=== PATIENT | female | born 1940 | race Hispanic/Latino ===

== ENCOUNTER 2020-05-30 10:24 | Inpatient (IN) | payer OTHER ==
--- NOTE | 2020-05-30 10:55 | RAD REPORT ---
EXAM DESCRIPTION: CT - Ct Stroke Brain Wo Cont - 05/30/2020 10:47 am CLINICAL HISTORY: Confusion/alteration of awareness COMPARISON: none TECHNIQUE: Computed axial tomography of the head was obtained. All CT scans are performed using dose optimization technique as appropriate and may include automated exposure control or mA/KV adjustment according to patient size. FINDINGS: An intracranial bleed is not seen . The ventricles are normal in caliber. No extra-axial fluid collection is noted. Mild to moderate low-density within periventricular, deep and subcortical white matter likely ischemi c changes secondary to small vessel disease. Additional small low-density areas bilaterally may indic ate small old infarction. Atherosclerotic disease Fluid within the sinuses/ mastoids is not seen. Mild chronic sinusitis present IMPRESSION: No acute intracranial abnormality is seen. If patient's symptoms persist MRI of the bra in would be recommended. Dr Lacy of the emergency room was notified at 10:48 a.m. May 30, 2020
--- NOTE | 2020-05-30 11:01 | RAD REPORT ---
EXAM DESCRIPTION: Darryl Single View05/30/2020 10:57 am CLINICAL HISTORY: Chest pain COMPARISON: none FINDINGS: The lungs appear clear of acute infiltrate. The heart is normal size IMPRESSION: No acute abnormalities displayed
[2020-05-30 11:19] LABS: Absolute Lymphocytes (CBC) 1.8 K/uL (0.7-4.9); Basophils % 0.7 % (0-1.3); Hematocrit 33.3 % (36.0-45.0); Lymphocytes % 21.2 % (15.3-44.8); MPV 10.4 fL (7.6-11.3); RBC Red Blood Cell Count 3.65 M/uL (3.86-4.86)
[2020-05-30 11:20] LABS: Protime INR 1.02
[2020-05-30 11:29] LABS: BUN Blood Urea Nitrogen 20 mg/dL (7-18); Bicarbonate 22 mmol/L (21-32); Glucose Level 122 mg/dL (74-106); Potassium 3.6 mmol/L (3.5-5.1); Sodium Level 143 mmol/L (136-145); Troponin (Emerg Dept Use Only) < 0.02 ng/mL (0.0-0.045)
[2020-05-30 11:49] LABS: Urine Blood TRACE (NEG); Urine Glucose NEGATIVE (NEG); Urine Protein TRACE (NEG)
[2020-05-30 11:59] LABS: Urine Bacteria <20 /HPF (<20); Urine Culture Reflex Order NOT NEEDED; Urine RBC <5 /HPF (NONE SEEN); Urine Yeast MANY (NONE SEEN)
[2020-05-30] MEDS ORDERED: NA CHLORIDE 0.9% 500 ML ONE (12:15)
--- NOTE | 2020-05-30 12:34 | EDPHYS ---
Physician Documentation [facility] Name: Marielle Rouse Age: 79 yrs Sex: Female : 1940 Arrival Date: 05/30/2020 Time: 10:36 Bed 8 Private MD: ED Physician Uche Lacy HPI: 05/30 11:18 This 79 yrs old Female presents to ER via EMS with complaints of Altered rn Mental Status. 11:18 The patient presents with confusion. Onset: The symptoms/episode began/occurred at an rn unknown time. Possible causes: unknown. Current symptoms: In the emergency department the patient's symptoms are unchanged from the initial presentation. The patient has experienced a previous episode. Family reports last known normal last night, went to check on patient this AM and was staring at ceiling. They noticed right facial droop that was seen with previous stroke, but they state it had resolved and looks like happening again. No recent illness. Another son verified that she is speaking differently and not acting like herself. EMS reports able to walk down steps on her own, get into stretcher on her own, and follows some commands but not others. . Historical: - Allergies: 10:39 No Known Allergies; hb - Immunization history:: Adult Immunizations up to date. - Social history:: Smoking status: unknown. - Family history:: not pertinent. - Hospitalizations: : No recent hospitalization is reported. ROS: 11:18 Unable to obtain ROS due to altered mental status. rn Exam: 11:18 Constitutional: This is a well developed, well nourished patient who is awake, alert, rn no acute distress Head/Face: Normocephalic, atraumatic. Eyes: Pupils equal round and reactive to light, extra-ocular motions intact. Lids and lashes normal. Conjunctiva and sclera are non-icteric and not injected. Cornea within normal limits. Periorbital areas with no swelling, redness, or edema. ENT: dry MM Cardiovascular: Regular rate and rhythm. No pulse deficits. Respiratory: No increased work of breathing, no retractions or nasal flaring. Abdomen/GI: soft, non-tender MS/ Extremity: Pulses equal, no cyanosis. Neurovascular intact. Full, normal range of motion. Equal circumference. Neuro: Awake and alert, when asked name and place/date she responds with "hi". Strength 5/5 no drift, no tremor. Withdraws from pain. Gaze intact. + mild right upper and lower facial weakness. + mild slurred speech. Vital Signs: 10:36 BP 144 / 71; Pulse 80; Resp 16; Temp 97.7(TE); Pulse Ox 99% on R/A; Pain 0/10; hb 11:30 BP 122 / 66; Pulse 97; Resp 16; Pulse Ox 99% on R/A; hb 13:00 BP 116 / 78; Pulse 87; Pulse Ox 100% on R/A; hb 14:30 BP 125 / 68; Pulse 78; Resp 16; Pulse Ox 99% on R/A; hb 10:36 Ortiz-Villatoro (FACES) hb NIH Stroke Scale Scores: 10:50 NIHSS Score: 5 rn MDM: 10:36 Patient medically screened. rn 10:46 ED course: Last known normal last night per family, one of their siblings checked don rn her this morning, was altered and staring blankly at ceiling. Had long discussion with family about if this is a stroke, cannot give TPA due to timing.. 10:50 ED course: No acute findings on CT head per Dr. Hines.. rn 11:18 Differential Diagnosis: CVA, electrolyte abnormality, intracranial bleed, UTI, volume rn depletion. 11:45 Data reviewed: vital signs, nurses notes, lab test result(s), EKG, radiologic studies, rn and as a result, I will admit patient. Counseling: I had a detailed discussion with the patient and/or guardian regarding: the historical points, exam findings, and any diagnostic results supporting the discharge/admit diagnosis, lab results, radiology results, the need for further work-up and treatment in the hospital. Response to treatment: the patient's symptoms have mildly improved after treatment, and as a result, I will admit patient. ED course: Pt with no acute findings on ct head. UA without obvious UTI. Elevated creatinine but first visit here, family thinks may have been told has kidney problems. . 12:32 ED course: Admitted to Dr. Espana for AMS w/u. Checked with MRI, machine is up and rn running, have neuro personnel specialist. Will admit for further w/u of possible CVA that is outside window given last known normal last night, and w/u for AMS.. 05/30 10:37 Order name: Troponin (emerg Dept Use Only) rn 05/30 10:37 Order name: Basic Metabolic Panel rn 05/30 10:37 Order name: CBC with Diff; Complete Time: 11:41 rn 05/30 10:37 Order name: Protime (+inr); Complete Time: 11:41 rn 05/30 10:37 Order name: Ptt, Activated; Complete Time: 11:41 rn 05/30 10:37 Order name: Urine Culture rn 05/30 10:37 Order name: Urine Microscopic Only; Complete Time: 12:25 rn 05/30 10:38 Order name: Troponin (Emerg Dept Use Only); Complete Time: 11:41 EDMS 05/30 10:38 Order name: Basic Metabolic Panel; Complete Time: 11:41 EDMS 05/30 11:47 Order name: Urine Dipstick--Ancillary (enter results); Complete Time: 12:25 bd 05/30 13:55 Order name: Comprehensive Metabolic Panel EDMS 05/30 13:55 Order name: Comprehensive Metabolic Panel EDMS 05/30 13:57 Order name: Urine Drug Screen EDMS 05/30 13:57 Order name: CBC with Automated Diff EDMS 05/30 13:57 Order name: CBC with Automated Diff EDMS 05/30 13:57 Order name: Lipid Profile EDMS 05/30 13:57 Order name: Lipid Profile EDMS 05/30 13:57 Order name: Magnesium EDMS 05/30 13:57 Order name: Magnesium EDMS 05/30 13:57 Order name: Phosphorus EDMS 05/30 13:57 Order name: Phosphorus EDMS 05/30 13:57 Order name: Protime (+INR) EDMS 05/30 13:57 Order name: Protime (+INR) EDMS 05/30 13:57 Order name: Protime (+INR) EDMS 05/30 13:57 Order name: Protime (+INR) EDMS 05/30 13:57 Order name: Protime (+INR) EDMS 05/30 13:57 Order name: Protime (+INR) EDMS 05/30 13:57 Order name: PTT, Activated Partial Thromb EDMS 05/30 13:57 Order name: PTT, Activated Partial Thromb EDMS 05/30 13:57 Order name: PTT, Activated Partial Thromb EDMS 05/30 10:37 Order name: CT Stroke Brain w/o Contrast; Complete Time: 11:03 rn 05/30 10:37 Order name: Stroke CXR 1 View; Complete Time: 11:03 rn 05/30 10:37 Order name: EKG; Complete Time: 10:38 rn 05/30 10:37 Order name: Accucheck; Complete Time: 10:49 rn 05/30 10:37 Order name: Cardiac monitoring; Complete Time: 10:49 rn 05/30 10:37 Order name: EKG - Nurse/Tech; Complete Time: 11:59 rn 05/30 10:37 Order name: IV Saline Lock; Complete Time: 10:49 rn 05/30 10:37 Order name: Labs collected and sent; Complete Time: 11:58 rn 05/30 10:37 Order name: NPO; Complete Time: 10:49 rn 05/30 10:37 Order name: O2 Per Protocol; Complete Time: 10:49 rn 05/30 10:37 Order name: O2 Sat Monitoring; Complete Time: 10:49 rn 05/30 10:37 Order name: Stroke Swallow Screen; Complete Time: 11:58 rn 05/30 10:37 Order name: Urine Dipstick-Ancillary (obtain specimen); Complete Time: 11:58 rn 05/30 13:57 Order name: Physical Therapy Consult EDMI 05/30 13:57 Order name: Speech Therapy Consult EDMI 05/30 13:57 Order name: NPO EDMS 05/30 13:57 Order name: Echo with Doppler EDMS 05/30 13:57 Order name: EKG Electrocardiogram EDMS 05/30 13:57 Order name: PTT, Activated Partial Thromb EDMS 05/30 13:57 Order name: PTT, Activated Partial Thromb EDMS 05/30 13:57 Order name: PTT, Activated Partial Thromb EDMS 05/30 13:57 Order name: Sedimentation Rate, Westergren EDMS 05/30 13:57 Order name: Sedimentation Rate, [place]gren EDMS 05/30 13:57 Order name: Stroke Protocol EDMI Administered Medications: 12:11 Drug: NS 0.9% 500 ml Route: IV; Rate: bolus; Site: left antecubital; hb Disposition: 05/30/20 12:33 Hospitalization ordered by Elroy Espana for Inpatient Admission. Preliminary diagnosis is Altered mental status, unspecified. - Bed requested for Telemetry/MedSurg (Inpatient). - Status is Inpatient Admission. hb - Condition is Stable. - Problem is new. - Symptoms have improved. NIH Stroke Scale - NIH Stroke Score Date: 05/30/2020 Time: 10:50 Total Score = 5 1a. Level of Consciousness (LOC) - 0(Alert) 1b. Level of Consciousness (LOC) (Year \\T\\ Age) - 2(Neither) 1c. LOC Commands (Open \\T\\ Closes Eyes/Center Customer Service Associate) - 1(One) 2. Best Gaze (Lateral Gaze Paresis) - 0(Normal) 3. Visual Field Loss - 0(No visual loss) 4. Facial Palsy - 1(Minor Paralysis) 5a. Left Arm: Motor (10-second hold) - 0(No drift) 5b. Right Arm: Motor (10-second hold) - 0(No drift) 6a. Left Leg: Motor (5-second hold - always test supine) - 0(No drift) 6b. Right Leg: Motor (5-second hold - always test supine) - 0(No drift) 7. Limb Ataxia (finger/nose \\T\\ heel/lazo - test with eyes open) - 0(Absent) 8. Sensory Loss (pinprick arms/legs/face) - 0(Normal) 9. Best Language: Aphasia (description/naming/reading) - 0(No aphasia) 10. Dysarthria (speech clarity - read or repeat words) - 1(Mild to Moderate) 11. Extinction and Inattention (visual/tactile/auditory/spatial/personal) - 0(No abnormality) Initials: rn Signatures: Dispatcher [employer] EDSavana Gannon Roman, MD MD rn Baxter, Heather, RN RN Corrections: (The following items were deleted from the chart) 11:30 11:18 Constitutional: This is a well developed, well nourished patient who is rn awake, alert, no acute distress Head/Face: Normocephalic, atraumatic. Eyes: Pupils equal round and reactive to light, extra-ocular motions intact. Lids and lashes normal. Conjunctiva and sclera are non-icteric and not injected. Cornea within normal limits. Periorbital areas with no swelling, redness, or edema. ENT: dry MM Cardiovascular: Regular rate and rhythm. No pulse deficits. Respiratory: No increased work of breathing, no retractions or nasal flaring. Abdomen/GI: soft, non-tender MS/ Extremity: Pulses equal, no cyanosis. Neurovascular intact. Full, normal range of motion. Equal circumference. Neuro: Awake and alert, when asked name and place/date she responds with "hi". Strength 5/5 no drift, no tremor. Withdraws from pain. Gaze intact. + mild right upper and lower facial weakness. rn 14:01 13:57 Chest Pa And Lat (2 Views) ordered. EDMS EDMS 14:04 12:33 Hospitalization Ordered by Elroy Espana MD for Inpatient Admission. bd Preliminary diagnosis is Altered mental status, unspecified. Bed requested for Telemetry/MedSurg (Inpatient). Status is Inpatient Admission. Condition is Stable. Problem is new. Symptoms have improved. rn 15:10 14:04 05/30/2020 12:33 Hospitalization Ordered by Elroy Espana MD for hb Inpatient Admission. Preliminary diagnosis is Altered mental status, unspecified. Bed requested for Telemetry/MedSurg (Inpatient). Status is Inpatient Admission. Condition is Stable. Problem is new. Symptoms have improved. bd
--- NOTE | 2020-05-30 12:34 | ER ---
Nurse's Notes [facility] Name: Marielle Rouse Age: 79 yrs Sex: Female : 1940 Arrival Date: 05/30/2020 Time: 10:36 Bed 8 Private MD: Diagnosis: Altered mental status, unspecified Presentation: 05/30 10:36 Chief complaint: EMS states: Son called for possible stroke, pt lives alone and sounded hb confused on phone, upon arrival he noticed left facial droop. History of previous CVA w/left sided weakness. On scene pt oriented to name only, following some simple commands, was able to walk and get on stretcher with minimal assistance. Last known normal unknown. BGL 109. 20g LAC. Coronavirus screen: At this time, the client does not indicate any symptoms associated with coronavirus-19. Ebola Screen: No symptoms or risks identified at this time. Initial Sepsis Screen: Does the patient meet any 2 criteria? Altered Mental Status. No. Patient's initial sepsis screen is negative. Does the patient have a suspected source of infection? No. Patient's initial sepsis screen is negative. Risk Assessment: Do you want to hurt yourself or someone else? Patient reports no desire to harm self or others. Onset of symptoms was May 30, 2020. 10:36 Method Of Arrival: EMS: [facility] hb 10:36 Acuity: DERRICK 2 hb Historical: - Allergies: 10:39 No Known Allergies; hb - Immunization history:: Adult Immunizations up to date. - Social history:: Smoking status: unknown. - Family history:: not pertinent. - Hospitalizations: : No recent hospitalization is reported. Screenin:40 Abuse screen: unable to obtain. Nutritional screening: No deficits noted. Tuberculosis hb screening: unable to obtain. Fall Risk Total Chavez Fall Scale indicates Low Risk Score (25-44 pts). Fall prevention measures have been instituted. Side Rails Up X 2 Frequent Obs/Assesments occuring Family Present and informed to notify staff if they need to leave bedside As available Patient and Family Educated on Fall Prevention Program and strategies. Assessment: 10:40 General: Appears in no apparent distress. Behavior is calm, cooperative. Pain: Unable hb to use pain scale. FLACC scale score is 0 out of 10. Neuro: Level of Consciousness is awake, alert, Oriented to person. Cardiovascular: Capillary refill < 3 seconds Patient's skin is warm and dry. Respiratory: Respiratory effort is even, unlabored, Respiratory pattern is regular, symmetrical. GI: No signs and/or symptoms were reported involving the gastrointestinal system. : No signs and/or symptoms were reported regarding the genitourinary system. EENT: No signs and/or symptoms were reported regarding the EENT system. Derm: Skin is pink, warm \T\ dry. Musculoskeletal: No signs and/or symptoms reported regarding the musculoskeletal system. 11:34 Reassessment: Patient appears in no apparent distress at this time. No changes from hb previously documented assessment. Patient and/or family updated on plan of care and expected duration. Pain level reassessed. Daughter remains at bedside. 12:30 Reassessment: Patient appears in no apparent distress at this time. No changes from hb previously documented assessment. Patient and/or family updated on plan of care and expected duration. Pain level reassessed. 13:30 Reassessment: Patient appears in no apparent distress at this time. No changes from hb previously documented assessment. Patient and/or family updated on plan of care and expected duration. Pain level reassessed. 14:30 Reassessment: Patient appears in no apparent distress at this time. No changes from hb previously documented assessment. Patient and/or family updated on plan of care and expected duration. Pain level reassessed. Vital Signs: 10:36 BP 144 / 71; Pulse 80; Resp 16; Temp 97.7(TE); Pulse Ox 99% on R/A; Pain 0/10; hb 11:30 BP 122 / 66; Pulse 97; Resp 16; Pulse Ox 99% on R/A; hb 13:00 BP 116 / 78; Pulse 87; Pulse Ox 100% on R/A; hb 14:30 BP 125 / 68; Pulse 78; Resp 16; Pulse Ox 99% on R/A; hb 10:36 Ortiz-Villatoro (FACES) hb NIH Stroke Scale Scores: 10:50 NIHSS Score: 5 journal box inspector Course: 10:36 Patient arrived in ED. hb 10:36 Uche Lacy MD is Attending Physician. rn 10:39 Triage completed. hb 10:39 Arm band placed on. hb 10:40 Patient has correct armband on for positive identification. Bed in low position. Call hb light in reach. Side rails up X2. 10:46 CT Stroke Brain w/o Contrast In Process Unspecified. EDMS 10:53 Patient moved to radiology via stretcher. jr1 10:53 X-ray completed. Portable x-ray completed in exam room. jr1 10:55 Stroke CXR 1 View In Process Unspecified. EDMS 10:59 Maddy Motley, RN is Primary Nurse. hb 11:06 Maintain EMS IV. Dressing intact. Good blood return noted. Site clean \T\ dry. Gauge \T\ hb site: 20g LAC. 11:32 Straight cath inserted, using sterile technique, 16 Fr. Specimen obtained. Returned hb clear yellow urine. Patient tolerated well. 12:33 Elroy Espana MD is Hospitalizing Provider. rn Administered Medications: 12:11 Drug: NS 0.9% 500 ml Route: IV; Rate: bolus; Site: left antecubital; hb Outcome: 12:33 Decision to Hospitalize by Provider. rn 15:10 Patient left the ED. hb NIH Stroke Scale - NIH Stroke Score Date: 05/30/2020 Time: 10:50 Total Score = 5 1a. Level of Consciousness (LOC) - 0(Alert) 1b. Level of Consciousness (LOC) (Year \T\ Age) - 2(Neither) 1c. LOC Commands (Open \T\ Closes Eyes/[employer]nel [employer]rier [id number]) - 1(One) 2. Best Gaze (Lateral Gaze Paresis) - 0(Normal) 3. Visual Field Loss - 0(No visual loss) 4. Facial Palsy - 1(Minor Paralysis) 5a. Left Arm: Motor (10-second hold) - 0(No drift) 5b. Right Arm: Motor (10-second hold) - 0(No drift) 6a. Left Leg: Motor (5-second hold - always test supine) - 0(No drift) 6b. Right Leg: Motor (5-second hold - always test supine) - 0(No drift) 7. Limb Ataxia (finger/nose \T\ heel/lazo - test with eyes open) - 0(Absent) 8. Sensory Loss (pinprick arms/legs/face) - 0(Normal) 9. Best Language: Aphasia (description/naming/reading) - 0(No aphasia) 10. Dysarthria (speech clarity - read or repeat words) - 1(Mild to Moderate) 11. Extinction and Inattention (visual/tactile/auditory/spatial/personal) - 0(No abnormality) Initials: rn Signatures: Dispatcher [employer] ED Marco AYuli jr1 Uche Lacy MD MD rn Baxter, Heather, RN RN hb Corrections: (The following items were deleted from the chart) 14:59 12:08 BP 116 / 78; Pulse 87bpm; Pulse Ox 100% RA; hb hb
[2020-05-30] MEDS ORDERED: ACETAMINOPHEN 500 MG TAB PO PRN (13:46)
[2020-05-30] MEDS ORDERED: ONDANSETRON 4 MG/2 ML VIAL IV PRN (13:46)
--- NOTE | 2020-05-30 15:59 | RAD REPORT ---
EXAM DESCRIPTION: MRI - Brain Wo Cont - 05/30/2020 3:46 pm CLINICAL HISTORY: AMSCVA, left facial droop COMPARISON: MRA Head Wo Cont dated 05/30/2020 TECHNIQUE: Sagittal T1-weighted images were obtained along with axial PD, heavily T2-weighted and T2 -FLAIR images. Axial DWI and ADC mapping sequences were also obtained along with coronal heavily T2-w eighted images. FINDINGS: No intracranial hemorrhage. Diffusion-weighted imaging shows abnormal signal in the white matter adjacent to the trigone of the left lateral ventricle extending into the temporal lobe white m atter. There is corresponding diminished signal on ADC mapping. There is no edema or shift of midline structures. No extra-axial fluid collections. Signal voids are seen as a normal finding in the major intracranial vessels. No globe or orbital content acute finding. Baseline chronic ischemic change in the cerebral white matter are again noted. Pontine chronic ischemic changes are present. No sella or supra sella abnormality. No tonsillar ectopia. Mastoid air cells and paranasal sinuses are clear. IMPRESSION: Infarction changes are evident in the white matter of the left temporal lobe and left te mporal occipital junction. This is probably a mix of early and late subacute CVA. No hemorrhagic transformation or acute intracranial hemorrhage. Patient has underlying chronic ischemic change and mild atrophy noted including brainstem chronic isc hemic change.
--- NOTE | 2020-05-30 16:02 | RAD REPORT ---
EXAM DESCRIPTION: MRI - MRA Head Wo Cont - 05/30/2020 3:45 pm CLINICAL HISTORY: CVA, left-sided weakness COMPARISON: MRI brain same date TECHNIQUE: Axial and coronal 3D [id number] image acquisition was performed. 3D rotational images were generated with source and reconstruction images reviewed. Horizontal and vertical axis rotation al views generated using MIP protocol. FINDINGS: No aneurysm or vascular malformation identified. No vasculitis. Right vertebral artery is the dominant vessel. Patient has a very small distal left vertebral artery. Mild tortuosity of the vertebrobasilar vasculature with no basilar stenosis. Mild to moderate athero sclerotic changes are present in the bilateral posterior cerebral artery distributions. Distal internal carotid arteries show no significant disease. Mild atherosclerotic change in the ante rior cerebral arteries. Right MCA shows no significant amount of disease. There is high-grade stenosi s at the left middle cerebral artery M1 - M2 junction. 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 Thi s degree of disease severity could explain the left temporal occipital CVA changes. Mild to moderate bilateral posterior cerebral artery atherosclerotic change with mild bilateral anter ior cerebral and right middle cerebral disease.
[2020-05-30 16:22] VITALS: BMI 28.3
[2020-05-30] MEDS: NA CHLORIDE 0.9% 1,000 ML IV SCH (16:52)
[2020-05-30] MEDS: ENOXAPARIN 30 MG/0.3 ML SQ SCH (16:53)
[2020-05-30] MEDS ORDERED: CLOPIDOGREL 75 MG TABLET PO ONE (17:30)
[2020-05-30] MEDS ORDERED: ASPIRIN EC 81 MG TAB PO ONE (18:00)
[2020-05-30] MEDS ORDERED: ATORVASTATIN 40 MG TAB PO ONE (18:00)
[2020-05-30] MEDS ORDERED: CEFTRIAXONE/SWI 1gm 1 GM/10 ML SYR IVP ONE (18:00)
[2020-05-30 18:06] LABS: Barbiturates NEGATIVE (NEGATIVE); Benzodiazepines NEGATIVE (NEGATIVE); Cocaine NEGATIVE (NEGATIVE); METHAMPHETAM NEGATIVE (NEGATIVE); Methadone NEGATIVE (NEGATIVE); Opiates NEGATIVE (NEGATIVE); Phencyclidine NEGATIVE (NEGATIVE); THC Cannibis NEGATIVE (NEGATIVE)
[2020-05-31] MEDS: NA CHLORIDE 0.9% 1,000 ML IV SCH ×2 (05:45→16:40)
[2020-05-31 05:57] LABS: Absolute Lymphocytes (CBC) 1.7 K/uL (0.7-4.9); Basophils % 0.8 % (0-1.3); Hematocrit 30.5 % (36.0-45.0); Lymphocytes % 22.8 % (15.3-44.8); MPV 10.8 fL (7.6-11.3); RBC Red Blood Cell Count 3.33 M/uL (3.86-4.86)
--- NOTE | 2020-05-31 05:57 | EKG ---
Test Date: 2020-05-30 Test Time: 12:01:26 General Agent: KIMBERLY MEASUREMENT RESULTS: Intervals: Rate: 79 OR: 216 QRSD: 84 QT: 396 QTc: 454 [place]: P: 43 OR: 216 QRS: -4 T: 84 INTERPRETIVE STATEMENTS: Sinus rhythm with 1st degree AV block Moderate voltage criteria for LVH, may be normal variant Nonspecific T wave abnormality Abnormal ECG Compared to ECG 06/07/2008 07:31:23 First degree AV block now present T-wave abnormality now present Early repolarization no longer present Electronically Signed On 05-31-20 05:55:37 CDT by Tommy Urban
[2020-05-31 06:14] LABS: Albumin 2.9 g/dL (3.4-5.0); Bilirubin Total 0.5 mg/dL (0.2-1.0); Magnesium 2.1 mg/dL (1.8-2.4); Phosphorus 2.7 mg/dL (2.5-4.9); Potassium 3.5 mmol/L (3.5-5.1); Protein, Total 6.6 g/dL (6.4-8.2)
[2020-05-31 06:17] LABS: Protime INR 1.09
[2020-05-31] MEDS ORDERED: KCL 20 MEQ/100 mL IVPB 20 MEQ/100 ML BAG IV SCH (07:00)
--- NOTE | 2020-05-31 07:53 | P.HP ---
Certification for Inpatient Patient admitted to: Inpatient With expected LOS: >2 Midnights Patient will require the following post-hospital care: None Practitioner: I am a practitioner with admitting privileges, knowledge of patient current condition, hospital course, and medical plan of care. Services: Services provided to patient in accordance with Admission requirements found in Title 42 Section 412.3 of the Code of Federal Regulations Patient History Date of Service: 05/30/20 Reason for admission: Altered mental status; aphasic History of Present Illness: Patient is a 79-year-old female came to the hospital with altered mentation. She is going to sleep last night around 8 or 9 o'clock which is the last time family had seen her. When she woke up she was not herself. They were not able to get her to communicate and she appear to be just staring out into space. There were trying to talk to her but she was not able to communicate. EMS was called and she apparently he walked out to the ambulance. Her vital signs were stable when she arrived into the emergency room. She was not hypertensive. Patient's CT scan in the emergency room was negative. Her UA was indicative of a possible mild urinary tract infection. Otherwise, she did have some renal insufficiency which the family states was chronic. MRI testing was ordered. The patient was admitted to the hospital for further evaluation. Unbeknownst to the emergency room staff, the family had been contacting their cardiothoracic surgeon, Dr. Caputo, at [facility]. Patient had a history of aortic stenosis he and they were informed that if they ever had any issues with her mentation to go to [facility]. They apparently had worked out transfer criteria. When the patient arrived to the floor, we were told shortly after that the patient had been accepted for transfer at [facility]. We called the transfer center and we had to go through the transfer criteria. They did have doctor acceptance but they were waiting for a bed. Allergies ibuprofen Adverse Reaction (Verified 05/30/20 15:56) Shortness of breath Home Medications: Amlodipine Besylate 10 mg PO DAILY 05/30/20 Atorvastatin Calcium 40 mg PO DAILY 05/30/20 Carvedilol [Coreg] 12.5 mg PO BID 05/30/20 Cholecalciferol (Vitamin D3) [Vitamin D3] 2,000 unit PO DAILY 05/30/20 Clopidogrel Bisulfate [Plavix] 75 mg PO DAILY 05/30/20 Insulin Glargine,Hum.rec.anlog [Toujeo Solostar] 8 units SQ BEDTIME 05/30/20 Insulin Glargine,Hum.rec.anlog [Toujeo Solostar] 40 units SQ DAILY 05/30/20 Linagliptin [Tradjenta] 1 tab PO DAILY 05/30/20 Losartan Potassium 100 mg PO DAILY 05/30/20 Pioglitazone [Actos] 15 mg PO DAILY 05/30/20 Sodium Bicarbonate 650 mg PO BID 05/30/20 Spironolactone 25 mg PO DAILY 05/30/20 - Past Medical/Surgical History Diabetic: Yes -: IDDM -: CVA -: HTN -: Hyperlipidemia Past Surgical History: Patient denies surgical history - Family History Father Family History: Reviewed- Non-Contributory - Social History Smoking Status: Never smoker Alcohol use: No CD- Drugs: No Caffeine use: No Place of Residence: Home Review of Systems 10-point ROS is otherwise unremarkable Physical Examination - Vital Signs Temperature: 97.7 F Blood Pressure: 125/58 Pulse: 68 Respirations: 18 Pulse Ox (%): 93 - Physical Exam General: Alert, In no apparent distress, Oriented x3 HEENT: Atraumatic, PERRLA, Mucous membr. moist/pink, EOMI, Sclerae nonicteric Neck: Supple, 2+ carotid pulse no bruit, No LAD, Without JVD or thyroid abnormality Respiratory: Clear to auscultation bilaterally, Normal air movement Cardiovascular: Regular rate/rhythm, Normal S1 S2, Systolic murmur Gastrointestinal: Normal bowel sounds, Soft and benign, Non-distended, No tenderness Musculoskeletal: No clubbing, No swelling, No tenderness Integumentary: No rashes Neurological: Normal tone, Sensation intact, Cranial nerves 3-12 intact, Normal affect, Abnormal gait, Abnormal speech, Abnormal strength Lymphatics: No axilla or inguinal lymphadenopathy - Studies Laboratory Data (last 24 hrs) 05/30/20 11:02: PT 12.0, INR 1.02, APTT 29.9 05/30/20 11:02: WBC 8.7, Hgb 11.2 L, Hct 33.3 L, Plt Count 175 05/30/20 11:02: Sodium 143, Potassium 3.6, BUN 20 H, Creatinine 2.04 H, Glucose 122 H Assessment & Plan - Problems (Diagnosis) (1) Cerebrovascular accident involving left middle cerebral artery territory Current Visit: Yes Status: Acute (2) Stenosis of left middle cerebral artery Current Visit: Yes Status: Acute (3) History of aortic stenosis Current Visit: Yes Status: Acute (4) History of hypertension Current Visit: Yes Status: Acute (5) History of type 2 diabetes mellitus Current Visit: Yes Status: Acute - Plan 1. Physical therapy evaluation 2. Speech therapy evaluation 3. Anti-platelet therapy and statin therapy; DVT prophylaxis has been started 4. Lipid profile in the morning 5. MRI of the brain revealed a left MCA infarct and critical stenosis of the left middle cerebral artery/echocardiogram/carotid Doppler 6. Awaiting transfer to [facility] per family's request 7. Neurology consultation appreciated 8. Permissive hypertension and gradual blood pressure control 9. Neuro checks every 4 hr 10. GI and DVT prophylaxis Discharge Plan: Other (Rehabilitation) Plan to discharge in: Greater than 2 days - Advance Directives Does patient have a Living Will: No Does patient have a Durable POA for Healthcare: No - Code Status/Comfort Care Code Status Assessed: Yes Code Status: Full Code Critical Care: Yes Time Spent Managing PTS Care (In Minutes): 55
--- NOTE | 2020-05-31 08:03 | P.PN ---
Subjective Date of Service: 05/31/20 We have not really heard anything from [facility] regarding bed assignment. We may need to transfer patient to a different facility; however, family wants to go to [facility] because of their cardiothoracic surgeon who is located in that facility. Will discuss with Neurology and family. Will continue to try to get acceptance at [facility] as soon as possible. Review of Systems 10-point ROS is otherwise unremarkable Physical Examination - Vital Signs Temperature: 97.7 F Blood Pressure: 125/58 Pulse: 68 Respirations: 18 Pulse Ox (%): 93 - Physical Exam General: Alert, Cooperative, Other (Aphasic) Respiratory: Clear to auscultation bilaterally, Normal air movement Cardiovascular: Regular rate/rhythm, Normal S1 S2, Systolic murmur Gastrointestinal: Normal bowel sounds, Soft and benign, Non-distended, No tenderness Musculoskeletal: No clubbing, No swelling, No tenderness Neurological: Normal tone, Sensation intact, Cranial nerves 3-12 intact - Studies Laboratory Data (last 24 hrs) 05/30/20 11:02: PT 12.0, INR 1.02, APTT 29.9 05/30/20 11:02: WBC 8.7, Hgb 11.2 L, Hct 33.3 L, Plt Count 175 05/30/20 11:02: Sodium 143, Potassium 3.6, BUN 20 H, Creatinine 2.04 H, Glucose 122 H Medications List Reviewed: Yes Assessment & Plan - Problems (Diagnosis) (1) Cerebrovascular accident involving left middle cerebral artery territory Current Visit: Yes Status: Acute (2) Stenosis of left middle cerebral artery Current Visit: Yes Status: Acute (3) History of aortic stenosis Current Visit: Yes Status: Acute (4) History of hypertension Current Visit: Yes Status: Acute (5) History of type 2 diabetes mellitus Current Visit: Yes Status: Acute - Plan 1. Physical therapy evaluation 2. Speech therapy evaluation 3. Anti-platelet therapy and statin therapy; DVT prophylaxis has been started 4. Lipid profile in the morning 5. MRI of the brain revealed a left MCA infarct and critical stenosis of the left middle cerebral artery/echocardiogram/carotid Doppler 6. Awaiting transfer to [facility] per family's request 7. Neurology consultation appreciated 8. Permissive hypertension and gradual blood pressure control 9. Neuro checks every 4 hr 10. GI and DVT prophylaxis - Advance Directives Does patient have a Living Will: No Does patient have a Durable POA for Healthcare: No - Code Status/Comfort Care Code Status: Full Code
[2020-05-31] MEDS: CLOPIDOGREL 75 MG TABLET PO SCH ×2 (09:00→17:44)
[2020-05-31] MEDS: ASPIRIN EC 81 MG TAB PO SCH ×2 (09:00→17:44)
[2020-05-31] MEDS ORDERED: ENOXAPARIN 40 MG/0.4 ML SQ SCH (09:00)
[2020-05-31] MEDS: ENOXAPARIN 30 MG/0.3 ML SQ SCH (09:31)
--- NOTE | 2020-05-31 09:36 | RAD REPORT ---
EXAM DESCRIPTION: USCarotid Artery Hkhekkiju71/7/2020 9:05 am CLINICAL HISTORY: CVA COMPARISON: None FINDINGS: The velocity of the right internal carotid artery equals 108 cm/sec. The right ICA/CCA rat io 1.6 The velocity of the left internal carotid artery equals 114 cm/sec. The left ICA/CCA ratio 2.2 core Mild plaque is present within the carotid arteries. The vertebral arteries demonstrate antegrade flow IMPRESSION: Mild plaque within the carotid arteries without evidence of a hemodynamically significan t stenosis NASCET criteria used. Mild 0-49% stenosis Moderate 50-69% stenosis Severe 70-99% stenosis
--- NOTE | 2020-05-31 20:04 | CON ---
Reason For Consultation: Consultation called because of an aphasic stroke. History Of Present Illness: Ms. Rouse is a 79-year-old right-handed patient, who came in with stroke like symptoms. The patient's family were in the room and helped with information. On May 29 around 8 p.m., she was detected to wake up and "not be herself." She was s taring in space and could not answer questions appropriately and could not get her words out properly . She had no weakness or numbness noted in the face, arm, or leg. She was brought to [facility] where a head CT scan was negative. Her UA showed mild urinary tract infection and she was dehy drated. Subsequent brain MRI stroke protocol done on the 30 of May, identified a left temporal and the left temporooccipital junction mix up early and late subacute stroke. The patient actually h as been seen in the past by Dr. Idris Caputo in [place] for cardiovascular reasons and the family did note that she was told to go to [place] if she has any symptoms of stroke or any cardiovascular s ymptoms. There is a transfer to [place] pending with the [facility]. At [facility] because the onset of her symptoms was well beyond the time for tPA. She did not receive intravenous anticoagulation. She is currently on aspirin 162 mg along with Plavix 75 mg daily and Lovenox 30 mg subcutaneously daily for DVT prophylaxis and she did receive Lipitor 40 mg at night and Rocephin 1 g for her urinary tract infection. Her catheterized urinalysis from the actually showed no grow th. Past Medical History: Hypertension, dyslipidemia, coronary artery disease, diabetes mellitus on insu kwasi, and prior stroke. Social History: No alcohol, tobacco, or IV drug use. Medications: Amlodipine 10 mg daily, atorvastatin 40 mg at night, Coreg 12.5 mg twice daily, vitamin D 2000 international units daily, Plavix 75 mg daily, Toujeo insulin 8 units subcutaneously at bedti me and 40 units subcutaneously daily, Tradjenta 1 tablet daily, losartan 100 mg daily, Actos 50 mg da will, sodium bicarb 650 mg twice daily, spironolactone 25 mg daily. Family History: Noncontributory. Review of Systems: Aside from mentioned, she denies any recent fevers, chills, nausea, vomiting, myalgias, arthralgias, rash, headache, weight change, or psychiatric issues. No dermatological issues. Physical Examination: Vital Signs: Blood pressure 129/56, pulse 75, respiratory rate 16, temperature 97.3, oxygen saturati on 98% on room air. Weight 140 pounds, height 4 feet 11 inches, BMI 28.3. General: Ms. Rouse is resting in bed. She is in no acute distress. HEENT: She is normocephalic, atraumatic. Sclerae anicteric. Oropharynx is moist and pink. Neck: Supple. Chest: Clear. Heart: Regular. Extremities: Show no clubbing, cyanosis, or edema. Neurological: She is alert and oriented to person. She has significant difficulty following simple commands, but eventually could identify her right hand. She could not place her point with her right index finger, could not cross the midline with instructions, and her words were not related to quest ions that she was asked. She had no facial asymmetry with good excursions and smiling. She appeared to have full visual alcala, although difficult to assess. Facial sensation appeared intact. Motor examination in the upper and lower extremities, she had full strength, unable to fully assess complet e strength. Her sensation stocking-glove loss reflexes absent in upper and lower extremities, except for trace reflexes. Coordination of care intact. Gait, she did ambulate well with physical therapi st over 250 feet, which is standby assistance. Laboratory Studies: Complete blood count with differential shows low hemoglobin of 10.3, white blood cell count is normal. ESR elevated at 35. Coagulation panel shows INR 1.09. Chemistries remarkabl e at admission creatinine 2.04, today after some hydration 1.86. Her liver function study is normal. LDL cholesterol 40, HDL cholesterol 32. Her drug screen is negative and she is SARS-COVID2 RNA PCR negative. Carotid artery ultrasound shows mild plaque without evidence of hemodynamically significa nt stenosis. Chest x-ray, no abnormalities identified. Electrocardiogram shows sinus rhythm with fi rst-degree AV block, moderate voltage criteria for left ventricular hypertrophy, nonspecific ST wave abnormalities. Assessment: Ms. Rouse is a 79-year-old patient with multiple stroke risk factors include hyperten ptee, diabetes, dyslipidemia, prior stroke, coronary artery disease, who has bilateral posterior circ ulation stroke involving the left temporal lobe and left temporooccipital junction, appeared to be so me early and some late suggestive of potential source which may even include heart cardioembolic sour rossy. She is on aspirin along with Plavix, urinary tract infection, and dehydration, which may be con tributing factors to her stroke. Plan: 1.Continue with aspirin and Plavix regimen. 2.Continue high-dose statin. 3.Some permissive hypertension in the setting of acute and subacute stroke. 4.Swallow evaluations to allow the patient to be stratified for a proper diet. 5.She is on the transfer list to go to [facility] and they are awaiting a bed in [facility]. TEODORA/KIRAN Voice ID: [id number] Report ID: [id number]
[2020-06-01 04:36] LABS: Protime INR 1.01
[2020-06-01 04:42] LABS: Potassium 3.5 mmol/L (3.5-5.1)
[2020-06-01] MEDS ORDERED: POTASSIUM CL SA 10 MEQ TAB PO ONE (05:24)
[2020-06-01] MEDS: NA CHLORIDE 0.9% 1,000 ML IV SCH ×3 (06:00→22:02)
--- NOTE | 2020-06-01 07:30 | ECHO ---
HEIGHT: 4 ft 11 in WEIGHT: 140 lb 2 oz DATE OF STUDY: 05/31/[address]: Elroy Espana MD 2-DIMENSIONAL: YES M.MODE: YES DOPPLER: YES COLOR FLOW: YES TDS: PORTABLE: DEFINITY: BUBBLE STUDY: DIAGNOSIS: STROKE CARDIAC HISTORY: CATHERIZATION: SURGERY: PROSTHETIC VALVE: PACEMAKER: MEASUREMENTS (cm) DIASTOLIC (NORMALS) SYSTOLIC (NORMALS) IVSd 1.0 (0.6-1.2) LA Diam 3.1 (1.9-4.0) LVEF 73% LVIDd 4.6 (3.5-5.7) LVIDs 2.7 (2.0-3.5) %FS 42% LVPWd 1.1 (0.6-1.2) Ao Diam 2.7 (2.0-3.7) 2 DIMENSIONAL ASSESSMENT: RIGHT ATRIUM: NORMAL LEFT ATRIUM: NORMAL RIGHT VENTRICLE: NORMAL LEFT VENTRICLE: NORMAL TRICUSPID VALVE: NORMAL MITRAL VALVE: NORMAL PULMONIC VALVE: NORMAL AORTIC VALVE: NORMAL PERICARDIAL EFFUSION: NONE AORTIC ROOT: NORMAL LEFT VENTRICULAR WALL MOTION: NORMAL DOPPLER/COLOR FLOW: AORTIC STENOSIS - SEVERE. 0.8 CENTIMETERS SQUARED - GRADIENT 62 mmHg. COMMENTS: AORTIC STENOSIS - SEVERE. 0.8 CENTIMETERS SQUARED AREA. NORMAL LEFT VENTRICULAR SIZE AND FUNCTION. NO WALL MOTION ABNORMALITY. TECHNOLOGIST: ROGER GARCIA
[2020-06-01] MEDS: ENOXAPARIN 30 MG/0.3 ML SQ SCH (09:39)
[2020-06-01] MEDS: ASPIRIN EC 81 MG TAB PO SCH (09:39)
[2020-06-01] MEDS: CLOPIDOGREL 75 MG TABLET PO SCH (09:40)
--- OUTSIDE RECORDS SUMMARY | 2020-06-01 13:08 | XMS REPORT | Clinical Summary ---
:1940 Author Organization [facility] Address [address] [place] [address] Care Team Providers Name Role Phone Oneil Fernandez MD Primary Care Provider Allergies Active Allergy Reactions Severity Noted Date Comments Ibuprofen Swelling 09/24/2017 Medications Medication Sig Dispensed Refills Start Date End Date Status losartan (COZAAR) 100 Take 100 mg by 0 08/08/2017 Active MG tablet mouth daily. amLODIPine (NORVASC) 10 Take 10 mg by 0 Active mg tablet mouth daily. atorvastatin (LIPITOR) Take 20 mg by 0 Active 20 MG tablet mouth nightly. Default OP ins clopidogrel (PLAVIX) 75 Take 75 mg by 0 Active mg tablet mouth daily. aspirin (ECOTRIN) 81 MG Take 81 mg by 0 Active enteric coated tablet mouth daily. INSULIN Inject 25 Units 0 Acti ve GLARGINE,HUM.REC.ANLOG under the skin 2 (LANTUS SUBQ) (two) times a day. linagliptin (TRADJENTA) Take 5 mg by 0 Active 5 mg tablet mouth daily with breakfast. Active Problems Problem Noted Date Nonrheumatic aortic valve stenosis 10/16/2017 Surgical History Surgery Date Site/Laterality Comments CARDIAC CATHETERIZATION 09/24/2017 N/A Procedur e: Cv left heart cath w lv gram cors; Surg mao: Oneil Fernandez MD; Loca tion: [facility] Chief Recordist Invasive Locatio n; Service: Cardiovascular; Laterality: N/A; CARDIAC CATHETERIZATION 09/24/2017 N/A Procedur e: Cv selective coronary angiography; Poe rgeon: Oneil Fernandez MD; Loca tion: [facility] Chief Recordist Invasive Locatio n; Service: Cardiovascular; Laterality: N/A; Medical History Medical History Date Comments Diabetes mellitus (HCC) Heart murmur Hyperlipidemia Hypertension Coronary artery disease Stroke (HCC) Social History Tobacco Use Types Packs/Day Years Used Date Never Smoker Smokeless Tobacco: Never Used Alcohol Use Drinks/Week oz/Week Comments No Sex Assigned at Date Recorded Not on file Last Filed Vital Signs Not on file Plan of Treatment Health Maintenance Due Date Last Done Comments DIABETIC RETINAL EYE EXAM 1940 DIABETIC FOOT EXAM 1950 URINE MICROALBUMIN 1950 SHINGLES VACCINES (#1) 1990 65+ PNEUMOCOCCAL VACCINE (1 of 1 - PPSV23) 2005 INFLUENZA VACCINE 03/25/2020 Results Not on fileafter 05/31/2019 9625 1 Advance Directives For more information, please contact: [phone] Type Date Recorded Patient Hand Sizer Explanati on Advance Directives, 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
--- OUTSIDE RECORDS SUMMARY | 2020-06-01 13:09 | XMS REPORT ---
:1940 Author Organization [employer] Care Team Providers Name Role Phone Hamida Pittsh Provider Role Unavailable Allergies, Adverse Reactions, Alerts Substance Reaction Event Type Ibuprofen Info Not Available Drug Allergy Problems Problem Type Condition Code Onset Dates Condition Statu s Problem Osteoarthritis of knee M17.9 Activ e Problem Hyperlipidemia, mixed E78.2 Active Problem History of CVA (cerebrovascular Z86.73 Active accident) without residual deficits Problem Chronic kidney disease, stage 4 N18.4 Active (severe) Assessment Generalized weakness R53.1 Active Problem intermission coordinator (current) use of insulin Z79.4 Active Assessment At risk for falls Z91.81 Active Assessment 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 Problem Type 2 diabetes mellitus with E11.22 Active diabetic chronic kidney disease Problem Benign essential HTN I10 Active Problem Diabetes type 2, controlled E11.9 Active Problem Venous insufficiency I87.2 Active Problem 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 Assessment Osteoarthritis of knee M17.9 Activ e Assessment Benign essential HTN I10 Active Assessment 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 Active inadequate dietary iron intake Assessment History of CVA (cerebrovascular Z86.73 Active accident) without residual deficits Assessment Type 2 diabetes mellitus with E11.22 Active diabetic chronic kidney disease Assessment intermission coordinator (current) use of insulin Z79.4 Active Assessment Venous insufficiency I87.2 Active Assessment Hyperlipidemia, mixed E78.2 Active Problem 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 Active inadequate dietary iron intake Assessment Heart murmur R01.1 Active Assessment Chronic kidney disease, stage 4 N18.4 Active (severe) Problem Chronic kidney disease, stage 3 N18.3 Active Medications Medication Code Code Instructions Start End Status Dosage System Date Date OneTouch Ultra [facility] 34174357078 - Active USE A S Test DIRECTED THREE TIMES DAILY Cozaar [facility] 64090570110 100 MG Orally Active 1 tabl et Once a day Tovaleriano Serrano [facility] 89743727698 300 UNIT/ML Active INJECT 40 UNITS UNDER THE SKIN EVERY MORNING AND 8 UNITS UNDER THE SKIN EVERY NIGHT AT BEDTIME. Norvasc [facility] 44821130010 5 MG Orally Active 1 EACH ONCE A DAY ORALLY OneTouch Delica [facility] 01230253560 - Active USE TWICE Lancets Fine DAILY Lipitor [facility] 25997843113 40 MG Orally Once Active 1 tablet a day Amlodipine ND 57237067228 5 MG Orally Once Active 1 tablet Besylate a day Plavix [facility] 53461271807 75 MG Orally Once Active 1 tablet a day Vitamin D3 [facility] 65750000021 25 MCG (1000 UT) Active 1 capsule Orally Once a day OneTouch Ultra [facility] 0 - Active TEST THRE E Test TIMES DAILY BD Pen Needle [facility] 05885260787 32G X 4 MM November Active 1 p en Vane U/F subcutaneously 20, needle once a day 2019 Tradjenta [facility] 05831788414 5 MG Orally Once Active 1 tablet a day Pioglitazone HCl [facility] 00220941576 15 MG Orally Once A ctive 1 tablet a day Coreg [facility] 00620928530 12.5 MG Orally Active 1 tab let Twice a day Touangeloo SoloStar [facility] 51545438817 300 UNIT/ML Active inject 40 Subcutaneous Once units qam a day [facility] 139[facility]8963 5 MG Active Take 1 tablet by mouth daily. Aspirin [facility] 23957713987 81 MG Orally Once Apr 08, Active 1 tablet a day 2017 Spironolactone [facility] 74430581533 25 MG Orally Once Act dorene 1 tablet a day Results No Known Results Summary Purpose [employer] Submission
--- OUTSIDE RECORDS SUMMARY | 2020-06-01 13:09 | XMS REPORT | Continuity of Care Document ---
:1940 Author Organization [facility] t Address [facility] Jagdeep Palacios [address] [place] [address] Care Team Providers Name Role Phone Attar MD Primary Care Physician Problems Condition Condition Condition Status Onset Resolution Last Treating Co mments Source Name Details Category Date Date Treatment Clinician Date Nonrheumat Nonrheumat Disease Active 2018-0 [place] aortic ic aortic 2-22 Meth henry valve valve 00:00: st stenosis stenosis 00 Benign Benign Diagnosis Active [facility] essential essential [facility] - HTN HTN Memoria l [facility] Diabetes Diabetes Problem Active [facility] type 2, type 2, [facility] - controlled controlled Me moria l [facility] Hyperlipid Hyperlipid Diagnosis Active [facility] emia, emia, [facility] - mixed mixed Memoria l [facility] Chronic Chronic Problem Active [facility] kidney kidney [facility] - disease, disease, Memori a stage 3 stage 3 l [facility] Iron Iron Problem Active [facility] deficiency deficiency Maxine kes - anemia anemia Memoria secondary secondary l to to Outpati inadequate inadequate en t dietary dietary Clinics iron iron intake intake History of History of Diagnosis Active [facility] CVA CVA [facility] - (cerebrova (cerebrova Me moria scular scular l accident) accident) Outp ati without without ent residual residual Clinic s deficits deficits Osteoarthr Osteoarthr Diagnosis Active [facility] itis of itis of [facility]ukes - knee knee [facility] l [facility] 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 [facility] - Memoria l [facility] Venous Venous Diagnosis Active [facility] insufficie insufficie Maxine kes - ncy ncy Memoria l [facility] Chronic Chronic Diagnosis Active [facility] kidney kidney [facility] - disease, disease, Memori a stage 4 stage 4 l (severe) (severe) Outpat i ent Clinics group home group home Diagnosis Active [facility] (current) (current) Luke s - use of use of Memoria insulin insulin l [facility] ent [facility] Type 2 Type [address] [facility] diabetes diabetes [facility] - mellitus mellitus Memori a with with l diabetic diabetic Outpat i chronic chronic ent kidney kidney Clinics disease disease Generalize Generalize Diagnosis Active [facility] d weakness d weakness Maxine kes - Memoria l [facility] ent [facility] At risk At risk Diagnosis Active [facility] t for falls for falls Luke s - Memoria l [facility] ent [facility] Heart Heart Diagnosis Active [facility] murmur murmur [facility] - Memoria l [facility] ent [facility] Allergies, Adverse Reactions, Alerts Allergy Allergy Status Severity Reaction(s) Onset Inactive Treating Comm ents Source Name Type Date Date Clinician Ibuprofe Propensi Active Swelling [place] ty to 09-24 Methodi adverse 00:00: st reaction 00 s to drug Ibuprofe Adverse Active Info Not [facility] n Reaction Available [facility] Social History Social Habit Start Date Stop Date Quantity Comments Source Sex Assigned At [facility] ethodist Tobacco use and 2018-09-29 2018-09-29 Never used [facility] ethodist exposure 00:00:00 00:00:00 Alcohol intake 2018-09-29 2018-09-29 Current [facility] thodist 00:00:00 00:00:00 non-drinker of alcohol (finding) Smoking Status Start Date Stop Date Source Never smoker [place] [facility] Medications Ordered Filled Start Stop Current Ordering Indication Dosage Frequency Signature Comments Components Source Medication Medication Date Date Medication? Clinician (SIG) Name Name BD Pen BD Pen Yes Andreas [address] [address] Needle Vane Needle Vane 4-20 [place] needle [facility] - U/F U/F 00:00: Memoria 00 [facility] ent Clinics amLODIPine Yes 10mg QD Take 10 mg Evaristo giraldo (NORVASC) 2-05 by mouth Method i 10 mg 13:00: daily. st tablet 52 atorvastati Yes 20mg QD Take 20 mg Dillon abdi (LIPITOR) 2-05 by mouth Meth henry 20 MG 13:00: nightly. st tablet 52 Default OP ins clopidogrel Yes 75mg QD Take 75 mg Dillon (PLAVIX) 75 2-05 by mouth Meth henry mg tablet 13:00: daily. st 52 aspirin 2018- Yes 81mg QD Take 81 mg [place] (ECOTRIN) 2-05 by mouth Method i 81 MG 13:00: daily. st enteric 52 coated tablet INSULIN 2018- Yes 25U Q.5D Inject 25 [place] GLARGINE,HU 2-05 Units Methodi M.REC.ANLOG 13:00: under the s t (LANTUS 52 skin 2 SUBQ) (two) times a day. linagliptin Yes 5mg QD Take 5 mg [place] (TRADJENTA) 2-05 by mouth Meth henry 5 mg tablet 13:00: daily with st 52 breakfast. Aspirin Aspirin Yes Andreas [address] 8-15 [place] [facility] - 00:00: Memoria 00 l [facility] ent Clinics losartan 2016-08 Yes 100mg QD Take 100 [place] (COZAAR) 2-15 mg by Methodi 100 MG 00:00: mouth st tablet 00 daily. Plavix Plavix Yes Andreas 1 tablet [facility] [place] [facility] Amlodipine Amlodipine Yes Andreas [address] Besylate Besylate [place] [facility] - [facility] l [facility] OneTouch OneTouch Yes Andreas USE [facility] Ultra Test Ultra Test [place] DIRECTED [facility] - THREE Memoria TIMES l DAILY [facility]ad Yes Andreas Take [address] [place] tablet by [facility] - mouth Memoria daily. l [facility] Lipitor Lipitor Yes Andreas [address] [facility] [place] [facility] - [facility] OneTouch OneTouch Yes Andreas USE TWICE [facility] Delica Delica [place] DAILY [facility] - Lancets Lancets Memoria Fine Fine l [facility]ics Touangeloo Touangeloo Yes Andreas inject [address] SoloStar SoloStar [place] units qam L ukes - Memoria l [facility]ics OneTouch OneTouch Yes Andreas TEST THREE [facility] Ultra Test Ultra Test [place] TIMES L ukes - DAILY Memoria l [facility] Andreas 1 EACH [facility] [place] ONCE A DAY [facility] - ORALLY Memoria l Outpati ent Clinics Pioglitazon Pioglitazon Yes Andreas [address] e HCl e HCl [place] [facility] - [facility] l Outpat[facility] ent Clinics Coreg Coreg Yes Andreas [address] [facility] [place] [facility] l Outpati ent Clinics Cozaar Cozaar Yes Andreas 1 tablet [facility] [place] [facility] Outpati ent Clinics Cindi Puente Yes Andreas INJECT [address] SoloStar SoloStar [place] UNITS [facility] - UNDER THE Memoria SKIN EVERY l MORNING Outpati AND 8 ent UNITS Clinics UNDER THE SKIN EVERY NIGHT AT BEDTIME. Vitamin D3 Vitamin D3 Yes Andreas [address] [facility] [place] [facility] l Outpati ent Clinics Spironolact Spironolact Yes Andreas [address] [facility] one one [place] [facility] - [facility] l Outpati ent Clinics Procedures This patient has no known procedures. Plan of Care Planned Activity Planned Date Details Comments Source Future Scheduled 2020-03-25 INFLUENZA VACCINE [place] [facility] 00:00:00 [code = INFLUENZA VACCINE] Future Scheduled 2005 65+ PNEUMOCOCCAL [facility] 00:00:00 VACCINE (1 of 1 - PPSV23) [code = 65+ PNEUMOCOCCAL VACCINE (1 of 1 - PPSV23)] Future Scheduled 1990 SHINGLES VACCINES (#1) [place] [facility] 00:00:00 [code = SHINGLES VACCINES (#1)] Future Scheduled 1950 DIABETIC FOOT EXAM [place] [facility] 00:00:00 [code = DIABETIC FOOT EXAM] Future Scheduled 1950 URINE MICROALBUMIN [place] [facility] 00:00:00 [code = URINE MICROALBUMIN] Future Scheduled 1940 DIABETIC RETINAL EYE [place] [facility] 00:00:00 EXAM [code = DIABETIC RETINAL EYE EXAM] Encounters Start End Encounter Admission Attending Care Care Encounter Source Date/Time Date/Time Type Type Clinicians Facility Department ID 2020-05-03 2020-05-03 Outpatient Juany Esqueda [id number] [address] 10:30:00 10:30:00 [employer] [facility] Medicine l Medicine Outpati ent Clinics 2020-01-25 2020-01-25 Outpatient Juany Esqueda [id number] [address] 10:00:00 10:00:00 t [employer] [facility] - [facility] Medicine Medicine Outpati ent Clinics 2020-01-18 2020-01-18 [facility] [id number] 14:16:00 14:16:00 t [employer] s - Drive [facility] l Medicine Outpati ent Clinics 2019-12-13 2019-12-13 [facility] [id number] 16:06:00 16:06:00 t [employer] [facility] - [facility] Medicine l Medicine Outpati ent Clinics 2019-12-06 2019-12-06 [facility] [id number] 08:26:00 08:26:00 t [employer] [facility] - Drive [facility] l Medicine Outpati ent Clinics 2019-11-26 2019-11-26 [facility] [id number] 09:36:00 09:36:00 t [employer] [facility] - Drive [facility] Medicine Outpati ent Clinics 2019-09-16 2019-09-16 [facility] [id number] 15:15:00 15:15:00 t [employer] [facility] - [facility] l Medicine Outpati ent Clinics 2019-06-16 2019-06-16 [facility] [id number] 13:00:00 13:00:00 t [employer] Ident[facility] s - [facility] Medicine l Medicine Outpati ent Clinics 2019-05-05 2019-05-05 [facility] [id number] 10:17:00 10:17:00 t [employer] Ident[facility] s - [facility] Medicine l Medicine Outpati ent Clinics 2019-04-15 2019-04-15 [facility] [id number] 12:08:00 12:08:00 t [employer] s - Drive [facility] l Medicine Outpati ent Clinics 2019-04-14 2019-04-14 [facility] [id number] 10:38:00 10:38:00 t [employer] s - Drive [facility] l Medicine Outpati ent Clinics 2019-04-09 2019-04-09 [facility] [id number] 14:42:00 14:42:00 t [employer] s - [place] [facility] Medicine Outpati ent Clinics 2019-03-17 2019-03-17 [facility] [id number] 14:00:00 14:00:00 t [employer] [facility] - [place] [facility] Medicine Outpati ent Clinics 2019-02-11 2019-02-11 [facility] [id number] 14:37:00 14:37:00 t [employer] s - [place] [facility] Medicine Outpati ent Clinics 2018-12-16 2018-12-16 [facility] [id number] 13:30:00 13:30:00 t [employer] - [place] [facility] Medicine Outpati ent Clinics 2018-09-17 2018-09-17 [facility] [id number] 13:30:00 13:30:00 t [employer] - [place] [facility] Medicine Outpati ent Clinics 2018-04-08 2018-04-08 [facility] [id number] 14:45:00 14:45:00 t [employer] - [place] [facility] Medicine Outpati ent Clinics 2018-03-17 2018-03-17 [facility] [id number] 13:00:00 13:00:00 t [employer] - [place] [facility] Medicine Outpati ent Clinics 2017-11-24 2017-11-24 [facility] [id number] 13:00:00 13:00:00 t [email or web address] L[employer] [facility] Medicine Outpati ent Clinics Results This patient has no known results.
[2020-06-02 06:45] LABS: Protime INR 0.97
[2020-06-02 07:00] LABS: Potassium 3.6 mmol/L (3.5-5.1)
[2020-06-02] MEDS ORDERED: POTASSIUM 25 MEQ EFFERV TAB PO ONE (07:57)
[2020-06-02] MEDS: CLOPIDOGREL 75 MG TABLET PO SCH (08:45)
[2020-06-02] MEDS: ASPIRIN EC 81 MG TAB PO SCH (08:46)
[2020-06-02] MEDS: ENOXAPARIN 30 MG/0.3 ML SQ SCH (08:46)
[2020-06-02] MEDS: NA CHLORIDE 0.9% 1,000 ML IV SCH ×2 (13:12→18:02)
[2020-06-02] MEDS ORDERED: DIGOXIN 0.25 MG/ML AMP IV ONE (15:00)
[2020-06-03 06:33] LABS: Potassium 3.9 mmol/L (3.5-5.1)
[2020-06-03] MEDS: ASPIRIN EC 81 MG TAB PO SCH (08:28)
[2020-06-03] MEDS: ENOXAPARIN 30 MG/0.3 ML SQ SCH (08:29)
[2020-06-03] MEDS: CLOPIDOGREL 75 MG TABLET PO SCH (08:29)
[2020-06-03 08:51] VITALS: O2SAT 95
[2020-06-03] MEDS ORDERED: POTASSIUM CL SA 10 MEQ TAB PO ONE (09:00)
[2020-06-03 10:16] VITALS: BP 140/60; TEMP 98.5
--- NOTE | 2020-06-03 12:09 | P.PN ---
Subjective Date of Service: 06/01/20 Patient is much improved. Clinical symptoms are doing better. She is still having some difficulty with getting some words out. But overall much improved. Continue with anti-platelet and statin therapy. Review of Systems 10-point ROS is otherwise unremarkable Physical Examination - Vital Signs Temperature: 98.5 F Blood Pressure: 140/60 Pulse: 71 Respirations: 17 Pulse Ox (%): 97 - Physical Exam General: Alert, In no apparent distress, Oriented x3 Respiratory: Clear to auscultation bilaterally, Normal air movement Cardiovascular: Regular rate/rhythm, Normal S1 S2, No murmurs Gastrointestinal: Normal bowel sounds, Soft and benign, Non-distended, No tenderness, No rebound, No guarding Musculoskeletal: No clubbing, No swelling, No tenderness Neurological: Normal strength at 5/5 x4 extr, Sensation intact, Cranial nerves 3-12 intact, Abnormal speech - Studies Medications List Reviewed: Yes Assessment & Plan - Problems (Diagnosis) (1) Cerebrovascular accident involving left middle cerebral artery territory Current Visit: Yes Status: Acute (2) Stenosis of left middle cerebral artery Current Visit: Yes Status: Acute (3) History of aortic stenosis Current Visit: Yes Status: Acute (4) History of hypertension Current Visit: Yes Status: Acute (5) History of type 2 diabetes mellitus Current Visit: Yes Status: Acute - Plan 1. Physical therapy evaluation completed. Patient's strength is appropriate. Patient is 5/5 in all 4 extremities. 2. Speech therapy evaluation completed. Recommended mechanical soft and thin liquids. 3. Anti-platelet therapy and statin therapy; DVT prophylaxis has been started 4. Lipid profile completed. LDL is 40. 5. MRI of the brain revealed a left MCA infarct and critical stenosis of the left middle cerebral artery/echocardiogram with no abnormality except for severe aortic stenosis./carotid Doppler with mild atherosclerotic disease. 6. We are still waiting for transfer to [facility] 7. Neurology consultation appreciated 8. Permissive hypertension and gradual blood pressure control 9. Neuro checks every 4 hr 10. GI and DVT prophylaxis Discharge Plan: Home Plan to discharge in: Greater than 2 days - Advance Directives Does patient have a Living Will: No Does patient have a Durable POA for Healthcare: No - Code Status/Comfort Care Code Status: Full Code Critical Care: No Time Spent Managing PTS Care (In Minutes): 35
--- NOTE | 2020-06-03 12:22 | P.PN ---
Subjective Date of Service: 06/02/20 Spoke to [facility]. They stated that they will call us back depending on accepting. Clinically she continues to do well. Continued to improve with her speech. Hopefully will be able to discharge her or transfer her over the next 48 hr. Review of Systems 10-point ROS is otherwise unremarkable Physical Examination - Vital Signs Temperature: 98.5 F Blood Pressure: 140/60 Pulse: 71 Respirations: 17 Pulse Ox (%): 97 - Physical Exam General: Alert, In no apparent distress, Oriented x3 Respiratory: Clear to auscultation bilaterally, Normal air movement Cardiovascular: Regular rate/rhythm, Normal S1 S2, Systolic murmur Gastrointestinal: Normal bowel sounds, Soft and benign, Non-distended, No tenderness Musculoskeletal: No clubbing, No swelling, No tenderness Neurological: Normal strength at 5/5 x4 extr, Normal tone, Sensation intact, Cranial nerves 3-12 intact, Abnormal speech Lymphatics: No axilla or inguinal lymphadenopathy - Studies Medications List Reviewed: Yes Assessment & Plan - Problems (Diagnosis) (1) Cerebrovascular accident involving left middle cerebral artery territory Current Visit: Yes Status: Acute (2) Stenosis of left middle cerebral artery Current Visit: Yes Status: Acute (3) History of aortic stenosis Current Visit: Yes Status: Acute (4) History of hypertension Current Visit: Yes Status: Acute (5) History of type 2 diabetes mellitus Current Visit: Yes Status: Acute - Plan Continue with plan of care as mentioned below 1. Physical therapy evaluation completed. Patient's strength is appropriate. Patient is 5/5 in all 4 extremities. 2. Speech therapy evaluation completed. Recommended mechanical soft and thin liquids. 3. Anti-platelet therapy and statin therapy; DVT prophylaxis has been started 4. Lipid profile completed. LDL is 40. 5. MRI of the brain revealed a left MCA infarct and critical stenosis of the left middle cerebral artery/echocardiogram with no abnormality except for severe aortic stenosis./carotid Doppler with mild atherosclerotic disease. We are waiting [facility] 6. Neurology consultation appreciated 7. Gradual blood pressure control 8. GI and DVT prophylaxis Discharge Plan: Home Plan to discharge in: Greater than 2 days - Advance Directives Does patient have a Living Will: No Does patient have a Durable POA for Healthcare: No - Code Status/Comfort Care Code Status: Full Code Critical Care: No Time Spent Managing PTS Care (In Minutes): 35
--- NOTE | 2020-06-03 12:41 | P.DS ---
Discharge Date: 06/03/20 Disposition: TRANSFER TO [facility] Condition: GOOD Reason for Admission: Altered mental status; aphasic Consultations: NEUROLOGY CARDIOLOGY - Problems (1) Cerebrovascular accident involving left middle cerebral artery territory Current Visit: Yes Status: Acute (2) Stenosis of left middle cerebral artery Current Visit: Yes Status: Acute (3) History of aortic stenosis Current Visit: Yes Status: Acute (4) History of hypertension Current Visit: Yes Status: Acute (5) History of type 2 diabetes mellitus Current Visit: Yes Status: Acute Brief History of Present Illness: Patient is a 79-year-old female came to the hospital with altered mentation. She is going to sleep last night around 8 or 9 o'clock which is the last time family had seen her. When she woke up she was not herself. They were not able to get her to communicate and she appear to be just staring out into space. There were trying to talk to her but she was not able to communicate. EMS was called and she apparently he walked out to the ambulance. Her vital signs were stable when she arrived into the emergency room. She was not hypertensive. Patient's CT scan in the emergency room was negative. Her UA was indicative of a possible mild urinary tract infection. Otherwise, she did have some renal insufficiency which the family states was chronic. MRI testing was ordered. The patient was admitted to the hospital for further evaluation. Unbeknownst to the emergency room staff, the family had been contacting their cardiothoracic surgeon, Dr. Caputo, at [facility]. Patient had a history of aortic stenosis he and they were informed that if they ever had any issues with her mentation to go to [facility]. They apparently had worked out transfer criteria. When the patient arrived to the floor, we were told shortly after that the patient had been accepted for transfer at [facility]. We called the transfer center and we had to go through the transfer criteria. They did have doctor acceptance but they were waiting for a bed. Hospital Course: Patient has had significant clinical improvement with her aphasia. She still has a critical stenosis. We had waited for [facility] but they were not able to except because they were not taking it would be able to do any interventions that we were not doing care. There would be nothing done for the aortic stenosis at this time and there would be no interventions for a critical stenosis of the left middle cerebral artery. We decided the contact [facility] and I spoke to their stroke physician who stated that they would do perfusion imaging to see if the brain tissue was salvageable where the infarct occurred. If it is then they may consider stenting that critical stenosis in the left middle cerebral artery. If not then they may not be able to do any further interventions except for the anti-platelet therapy and statin therapy that we have started. At this time, patient is stable for transfer to [facility]. Vital Signs/Physical Exam: Temp Pulse Resp BP Pulse Ox 98.5 F 71 17 140/60 97 06/03/20 12:36 06/03/20 12:36 06/03/20 12:36 06/03/20 12:36 06/03/20 12:36 General: Alert, In no apparent distress, Oriented x3 Laboratory Data at Discharge: WBC 7.3 K/uL (4.3-10.9) D 05/31/20 05:36 Hgb 10.3 g/dL (12.0-15.0) L 05/31/20 05:36 Hct 30.5 % (36.0-45.0) L 05/31/20 05:36 Plt Count 165 K/uL (152-406) 05/31/20 05:36 PT 11.8 SECONDS (9.5-12.5) 06/03/20 05:41 INR 1.00 06/03/20 05:41 APTT 29.6 SECONDS (24.3-36.9) 06/03/20 05:41 Sodium 142 mmol/L (136-145) 06/03/20 05:41 Potassium 3.9 mmol/L (3.5-5.1) 06/03/20 05:41 BUN 16 mg/dL (7-18) 06/03/20 05:41 Creatinine 1.88 mg/dL (0.55-1.3) H 06/03/20 05:41 Glucose 130 mg/dL (74-106) H 06/03/20 05:41 Phosphorus 2.7 mg/dL (2.5-4.9) 05/31/20 05:36 Magnesium 2.1 mg/dL (1.8-2.4) 05/31/20 05:36 Total Bilirubin 0.5 mg/dL (0.2-1.0) 05/31/20 05:36 AST 10 U/L (15-37) L 05/31/20 05:36 ALT 12 U/L (12-78) 05/31/20 05:36 Alkaline Phosphatase 67 U/L (45-117) 05/31/20 05:36 Triglycerides 134 mg/dL (<150) 05/31/20 05:36 Cholesterol 99 mg/dL (<200) 05/31/20 05:36 HDL Cholesterol 32 mg/dL (40-60) L 05/31/20 05:36 Cholesterol/HDL Ratio 3.09 05/31/20 05:36 Home Medications: Amlodipine Besylate 10 mg PO DAILY 05/30/20 Atorvastatin Calcium 40 mg PO DAILY 05/30/20 Carvedilol [Coreg] 12.5 mg PO BID 05/30/20 Cholecalciferol (Vitamin D3) [Vitamin D3] 2,000 unit PO DAILY 05/30/20 Clopidogrel Bisulfate [Plavix] 75 mg PO DAILY 05/30/20 Insulin Glargine,Hum.rec.anlog [Toujeo Solostar] 8 units SQ BEDTIME 05/30/20 Insulin Glargine,Hum.rec.anlog [Toujeo Solostar] 40 units SQ DAILY 05/30/20 Linagliptin [Tradjenta] 1 tab PO DAILY 05/30/20 Losartan Potassium 100 mg PO DAILY 05/30/20 Sodium Bicarbonate 650 mg PO BID 05/30/20 Spironolactone 25 mg PO DAILY 05/30/20 Clopidogrel Bisulfate [Plavix*] 75 mg PO DAILY #30 tablet 06/03/20 Enoxaparin Sodium [Lovenox 30 MG INJ*] 30 mg SQ DAILY #14 syr 06/03/20 New Medications: Enoxaparin Sodium [Lovenox 30 MG INJ*] 30 mg SQ DAILY #14 syr Clopidogrel Bisulfate [Plavix*] 75 mg PO DAILY #30 tablet Patient Discharge Instructions: OK TO TRANSFER TO [facility] FOR FURTHER CARE. RETURN TO THE ER IF symptoms worsen. CALL or TEXT DR. CHAVEZ AT [phone] IF ANY QUESTIONS REGARDING HOSPITAL STAY. PLEASE CALL THE FLOOR AT [phone] IF ANY MEDICATION OR NURSING QUESTIONS. Diet: AHA Activity: Fall precautions Time spent managing pt's care (in minutes): 35
--- NOTE | 2020-06-03 22:13 | CON ---
Date of Consultation: 06/03/2020 Reason For Consultation: New-onset atrial fibrillation and aortic stenosis. History Of Present Illness: Ms. Rouse is a 79-year-old woman who has a history of hypertension, c oronary artery disease, diabetes, dyslipidemia, and CVA, came in with a new CVA in the temporal area on the left side as well as the left temporo-occipital junction. She has already been seen by Dr. French chambers. The patient has had an echocardiogram showing severe aortic stenosis with an area of 0.8 cm sq. with a normal ejection fraction. She was noted to have 1 episode of atrial fibrillation that has resolved by now. She had came in with aphasia and altered mental status. No cardiac complaint then . Past Medical History: As stated above. Allergies: NONE. Review of Systems: Negative. Social History: Negative. Family History: Noncontributory. Medications: At home include: 1.Lipitor. 2.Norvasc. 3.Coreg. 4.Plavix. 5.Insulin. 6.Aldactone. 7.Actos. 8.Tradjenta. 9.Losartan. Physical Examination: General: She was alert, oriented to name. Aphasic, hard to obtain history from. Vital Signs: Stable, afebrile. HEENT: Negative. Neck: Supple. No bruit. Chest: Clear. Cardiac: Revealed a sinus rhythm with aortic stenosis murmur. Positive S4. No rubs. Abdomen: Benign. Extremities: Revealed no clubbing, cyanosis, or edema. Laboratory Data: Her workup showed a glucose of 163, creatinine 1.9. Echocardiogram showed an aorti c valve area of 0.3 cm sq. severe, with normal ejection fraction. Impression And Plan: 1.Paroxysmal atrial fibrillation. The patient is now on aspirin and Plavix and Lovenox. She receiv ed 1 dose of digoxin. She is back in sinus rhythm. She is on a beta ese at home, which we could certainly continue. Decision regarding anticoagulation in the long run should be referred to Dr. French chambers, but I certainly would not put her on any Eliquis or Xarelto at this point considering her new stroke. We will probably should wait about 6-8 weeks. She is in sinus rhythm right now. If she go es back into atrial fibrillation, we will readdress it, but I think IV digoxin and IV metoprolol as n eeded is the way to go for now and continue her Coreg. The patient apparently is being transferred t [facility] for further evaluation. 2.Her aortic stenosis is severe that needs to be addressed upon arrival in [place]. 3.Her other issues including hypertension, diabetes, dyslipidemia, and coronary artery disease seem to be stable at this point. 4.She has significant renal insufficiency that needs to be observed as well. 5.Her cerebrovascular accident has been followed by Dr. Victor. ROXY/KIRAN Voice ID: [id number] Report ID: [id number]
== END 2020-06-03 12:39 | disposition short-term general hospital (02) | DRG 65 ==
LOC: ER 10:24 → ERHOLD 14:11 → 2ND 14:59
PROVIDERS: ADMIT Hospitalist; ATTEND Hospitalist
DX: I63.512 Cerebral infarction due to unspecified occlusion or stenosis of left middle cerebral artery (principal); I69.354 Hemiplegia and hemiparesis following cerebral infarction affecting left non-dominant side; N39.0 Urinary tract infection, site not specified; R47.01 Aphasia; R29.810 Facial weakness; R29.705 NIHSS score 5; Z88.8 Allergy status to other drugs, medicaments and biological substances; Z79.02 Long term (current) use of antithrombotics/antiplatelets; Z79.4 Long term (current) use of insulin; Z79.899 Other long term (current) drug therapy; E11.9 Type 2 diabetes mellitus without complications; I10 Essential (primary) hypertension; E78.5 Hyperlipidemia, unspecified; Z60.2 Problems related to living alone; E86.0 Dehydration; I25.10 Atherosclerotic heart disease of native coronary artery without angina pectoris; I48.0 Paroxysmal atrial fibrillation; Z20.828 Contact with and (suspected) exposure to other viral communicable diseases
CPT/HCPCS: 36415; 51702; 70450; 70544; 70551; 71045; 80048; 80053; 80061; 80307; 81003; 81015; 82947; 83735; 84100; 84484; 85025; 85610; 85652; 85730; 87086; 87088; 92610; 93005; 93306; 93880; 97112; 97116; 97161; 99284; J0696; J1160; J1650; J3480; J7030; J7040; U0003

== ENCOUNTER 2020-07-31 12:51 | Observation (INO) | payer OTHER ==
--- OUTSIDE RECORDS SUMMARY | 2020-07-31 12:53 | XMS REPORT | Clinical Summary ---
:1940 Author Organization [facility] Address [address] [place] [address] Care Team Providers Name Role Phone Oneil [...] Surg mao: Oneil Fernandez MD; Loca tion: [facility] Shafting Worker Invasive Locatio n; Service: Cardiovascular; Laterality: N/A; CARDIAC CATHETERIZATION 09/24/2017 N/A Procedur e: Cv selective coronary angiography; Poe rgeon: Oneil Fernandez MD; Loca tion: [facility] Shafting Worker Invasive Locatio n; Service: Cardiovascular; Laterality: N/A; [...] Health Maintenance Due Date Last Done Comments DIABETES: RETINAL EYE EXAM 1950 DIABETIC FOOT EXAM 1950 URINE MICROALBUMIN 1950 SHINGLES VACCINES (#1) 1990 65+ PNEUMOCOCCAL VACCINE (1 of 1 - PPSV23) 2005 INFLUENZA VACCINE 03/25/2020 Results Not on fileafter 07/31/2019 1719 1 Advance Directives For more information, please contact: [phone] Type Date Recorded Patient Health Coach Explanati on Advance Directives, Living Will and Medical Power of Tanker Service Attendant
--- OUTSIDE RECORDS SUMMARY | 2020-07-31 12:53 | XMS REPORT | Continuity of Care Document ---
:1940 Author Organization [facility] t Address [address] [place] [address] Care Team Providers Name Role Phone Attar Primary Care Physician Problems Condition Condition Condition Status Onset Resolution Last Treating Co mments Source Name Details Category Date Date Treatment Clinician Date Nonrheumat Nonrheumat Disease Active [place] [facility] aortic ic aortic 2-22 Meth henry valve valve 00:00: st stenosis stenosis 00 Allergies, Adverse Reactions, Alerts Allergy Allergy Status Severity Reaction(s) Onset Inactive Treating Comm ents Source Name Type Date Date Clinician Ibuprofe Propensi Active Swelling [place] ty to 09-24 Methodi adverse 00:00: st reaction 00 s to drug Ibuprofe Adverse Active Info Not [facility] Social History Social Habit Start Date Stop Date Quantity Comments Source Sex Assigned At [facility] ethodist Tobacco use and 2018-09-29 2018-09-29 Never used [facility] ethodist exposure 00:00:00 00:00:00 Alcohol intake 2018-09-29 2018-09-29 Current [facility] thodist 00:00:00 00:00:00 non-drinker of alcohol (finding) Smoking Status Start Date Stop Date Source Never smoker [place] Method[facility] t Medications Ordered Filled Start Stop Current Ordering Indication Dosage Frequency Signature Comments Components Source Medication Medication Date Date Medication? Clinician (SIG) Name Name BD Pen BD Pen 2020-0 Yes Andreas [address] [facility] [address] Needle Vane Needle Vane 4-20 [place] needle [facility] - U/F U/F 00:00: Memoria 00 l [facility] ent [facility] amLODIPine Yes 10mg QD Take 10 mg [place] (NORVASC) 2-05 by mouth Method i 10 mg 13:00: daily. st tablet 52 atorvastati Yes 20mg QD Take 20 mg Carranza n (LIPITOR) 2-05 by mouth Meth henry 20 MG 13:00: nightly. st tablet 52 Default OP ins clopidogrel Yes 75mg QD Take 75 mg Carranza (PLAVIX) 75 2-05 by mouth Meth henry mg tablet 13:00: daily. st 52 aspirin Yes 81mg QD Take 81 mg [place] (ECOTRIN) 2-05 by mouth Method i 81 MG 13:00: daily. st enteric 52 coated tablet INSULIN Yes 25U Q.5D Inject 25 [place] [...] [facility] - 00:00: Memoria 00 l [facility] ent [facility] losartan 2016-08 Yes 100mg QD Take 100 [place] (COZAAR) 2-15 mg by Methodi 100 MG 00:00: mouth st tablet 00 daily. Plavix Plavix Yes Andreas 1 tablet [facility] Amlodipine Amlodipine Yes Andreas [address] [address] Besylate Besylate [place] [facility] ent Clinics OneTouch OneTouch Yes Andreas USE [facility] Ultra Test Ultra Test [place] DIRECTED [facility] - THREE Memoria TIMES l DAILY [facility] Clin[facility] Yes Andreas Take [address] [facility] tablet by [facility] - mouth Memoria daily. l [facility] ent Clinics Lipitor Lipitor Yes Andreas [address] [facility] Clinics OneTouch OneTouch Yes Andreas USE TWICE [facility] Delica Delica [place] DAILY [facility] - Lancets Lancets Memoria Fine Fine l Outpati ent Clinics [facility] Yes Andreas inject [address] SoloStar SoloStar [facility] units qam L ukes - Memoria l Outpati ent Clinics OneTouch OneTouch Yes Andreas TEST THREE [facility] Ultra Test Ultra Test [facility] TIMES L ukes - DAILY Memoria l Outpati ent Clin[facility] Yes Andreas 1 EACH [facility] [...] [facility] Out[facility] Yes Andreas INJECT [address] SoloStar [...] Comments Source Future Scheduled 2020-03-25 INFLUENZA VACCINE Sarah abdi [facility] 00:00:00 [code = INFLUENZA VACCINE] Future Scheduled 2005 65+ PNEUMOCOCCAL Carranza [facility] 00:00:00 VACCINE (1 of 1 - PPSV23) [code = 65+ PNEUMOCOCCAL VACCINE (1 of 1 - PPSV23)] Future Scheduled 1990 SHINGLES VACCINES (#1) H kristal [facility] 00:00:00 [code = SHINGLES VACCINES (#1)] Future Scheduled 1950 DIABETES: RETINAL EYE Ho uzair [facility] 00:00:00 EXAM [code = DIABETES: RETINAL EYE EXAM] Future Scheduled 1950 DIABETIC FOOT EXAM Wanda calixto [facility] 00:00:00 [code = DIABETIC FOOT EXAM] Future Scheduled 1950 URINE MICROALBUMIN [place] [facility] 00:00:00 [code = URINE MICROALBUMIN] Encounters Start End Encounter Admission Attending Care Care Encounter Source Date/Time Date/Time Type Type Clinicians Facility Department ID 2020-06-09 2020-06-09 [id number] 2020-06-08 2020-06-08 Out[facility] [id number] [facility] 2020-05-03 2020-05-03 [facility] [id number] 10:30:00 10:30:00 t [facility] Medicine Outpati ent Clinics 2020-01-25 2020-01-25 [facility] [id number] [facility] 10:[facility] 10:00:00 [facility] Medicine Outpat[facility] Clinics 2020-01-18 2020-01-18 [facility] [id number] 14:16:00 14:16:00 t Backlift [facility] Medicine Outpati ent Clinics 2019-12-13 2019-12-13 [facility] [id number] [address] 16:06:00 16:06:00 [facility] Physical [facility] Medicine Outpati ent Clinics 2019-12-06 2019-12-06 [facility] [id number] [address] 08:26:00 08:26:00 t Backlift [facility] Medicine Outpati ent Clinics 2019-11-26 2019-11-26 [facility] [id number] [address] 09:36:00 09:36:00 t Backlift [facility] Medicine Outpati ent Clinics 2019-09-16 2019-09-16 [facility] [id number] 15:15:00 15:15:00 t Backlift [facility] Medicine l Medicine Outpati ent Clinics 2019-06-16 2019-06-16 [facility] [id number] 13:00:00 13:00:[address] Luke s - Drive [facility] Medicine Outpati ent Clinics 2019-05-05 2019-05-05 [facility] [id number] 10:17:00 10:17:[address] Luke s - Drive [facility] Medicine Outpati ent Clinics 2019-04-15 2019-04-15 [facility] [id number] 12:08:00 12:08:[address] Luke s - Drive [facility] Medicine Outpati ent Clinics 2019-04-14 2019-04-14 [facility] [id number] 10:38:00 10:38:[address] Luke s - Drive [facility] Medicine Outpati ent Clinics 2019-04-09 2019-04-09 [facility] [id number] 14:42:00 14:42:[address] Luke s - Drive [facility] Medicine Outpati ent Clinics 2019-03-17 2019-03-17 [facility] [id number] 14:00:00 14:00:[address] Luke s - Drive [facility] Medicine Outpati ent Clinics 2019-02-11 2019-02-11 [facility] [id number] 14[facility]37:00 14:37:[address] Luke s - Drive [facility] Medicine Outpati ent Clinics 2018-12-16 2018-12-16 [facility] [id number] [facility] 13:30:00 13:30:[address] Luke s - Drive [facility] Medicine l Medicine Outpati ent Clinics 2018-09-17 2018-09-17 [facility] [id number] 13:30:00 13:30:[address] Luke s - Drive [facility] Medicine l Medicine Outpati ent Clinics 2018-04-08 2018-04-08 [facility] [id number] 14:45:00 14:45:[address] Luke s - Drive [facility] ent [facility] 2018-03-17 2018-03-17 [facility] [id number] 13:00:00 13:00:00 ATI Physical Therapy [facility] ent [facility] 2017-11-24 2017-11-24 [facility] [id number] 13:00:00 13:00:00 [facility] Physical Therapy [facility] ent Clinics Results This patient has no known results.
--- OUTSIDE RECORDS SUMMARY | 2020-07-31 12:53 | XMS REPORT ---
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 Norvasc [facility] 04023632961 5 MG Orally Active 1 EACH ONCE A DAY ORALLY OneTouch Delica [facility] 14217043181 - Active USE TWICE Lancets Fine DAILY Lipitor [facility] 77368016134 40 MG Orally Once Active 1 tablet a day Amlodipine ND 09392741207 5 MG Orally Once Active 1 tablet Besylate a day Plavix [facility] 12116326560 75 MG Orally Once Active 1 tablet a day Vitamin D3 [facility] 81256862579 25 MCG (1000 UT) Active 1 capsule Orally Once a day OneTouch Ultra [facility] 0 - Active TEST THRE E Test TIMES DAILY BD Pen Needle [facility] 44876632721 32G X 4 MM November Active 1 p en Vane U/F subcutaneously 20, needle once a day 2019 Tradjenta [facility] 11885725081 5 MG Orally Once Active 1 tablet a day Pioglitazone HCl [facility] 45342223802 15 MG Orally Once A ctive 1 tablet a day Coreg [facility] 32363493399 12.5 MG Orally Active 1 tab let Twice a day Touangeloo SoloStar [facility] 52171626121 300 UNIT/ML Active inject 40 Subcutaneous Once units qam a [facility] 5 MG Active Take 1 tablet by mouth daily. Aspirin [facility] 77801948889 81 MG Orally Once Apr 08, Active 1 tablet a day 2017 Spironolactone [facility] 42559757781 25 MG Orally Once Act dorene 1 tablet a day Results No Known Results Summary Purpose eClinicalWorks Submission
--- OUTSIDE RECORDS SUMMARY | 2020-07-31 12:53 | XMS REPORT ---
:1940 Author Organization [facility] Address [address] Merc[address], [address] [place] [address] Care Team Providers Name Role Phone Pitts Unavailable [phone] PROBLEMS Type Condition ICD9-CM [id number] Onset Condition SNOMED Code Notes Code Code Dates Status Problem Iron deficiency D50.8 Active 988231991 anemia secondary to inadequate dietary iron intake Problem Osteoarthritis of M17.9 Active 010527440 knee Problem Chronic kidney N18.3 Active 786866927 disease, stage 3 Problem Hyperlipidemia, E78.2 Active 462862073 mixed Problem History of CVA Z86.73 Active 209695130 (cerebrovascular accident) without residual deficits Problem Diabetes type 2, E11.9 Active 066055792 controlled Problem Benign essential I10 Active 22560132 HTN Problem Type 2 diabetes E11.22 Active 63131000 mellitus with diabetic chronic kidney disease Problem group home Z79.4 Active 877069631 (current) use of insulin Problem Chronic kidney N18.4 Active 052583934 disease, stage 4 (severe) Problem Cerebral I63.9 Active 34989596 infarction, unspecified Problem Venous I87.2 Active 93870649 insufficiency Problem Aphasia R47.01 Active 47641033 Problem 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 488109828 Problem Cerebrovascular I63.512 Active 233328236 accident (CVA) involving left middle cerebral artery territory Problem 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 780293091 middle cerebral artery Problem Paroxysmal a-fib I48.0 Active 842907755 Problem Nonrheumatic I35.0 Active 339651312 aortic valve stenosis ALLERGIES Allergen (clinical drug Drug/Non Drug Allergy Reaction Allergy Type Onset Date Status ingredient) documented on EMR ibuprofen Ibuprofen(NDC Unknown Drug Allergy Active Code:[address]-38) ENCOUNTERS from 1940 to 2020-06-08 Encounter Location Date Provider Diagnosis Yin Roach [address], [facility] [address] [place], accident ( CVA) [place] [address] involving left middle cerebral artery territory I63.5 12 ; Stenosis of lef t middle cerebral artery I66.02 ; Nonrheumatic aortic valve stenosis I35.0 ; Aphasia R47.01 ; Paroxysmal a-fi b I48.0 ; Type 2 diabet es mellitus with d iabetic chronic kidney disease E11.22 ; Chroni c kidney disease, stage 4 (severe) N18.4 ; Cerebral infarc tion, unspecified I63 .9 ; Hyperlipidemia, mixed E78.2 ; Benign essential HTN I 10 ; Osteoarthritis of knee M17.9 ; History of CVA (cerebrovascula r accident) witho ut residual defici ts Z86.73 ; Iron deficiency anem ia secondary to in adequate dietary iron in take D50.8 ; General ized weakness R53.1 ; At risk for falls Z91.81 ; 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 No Points 0 Interpretation Negative Tobacco Use/Smoking Question Answer Notes Are you a never smoker REASON FOR REFERRAL No Information VITAL SIGNS Height 60 in May, Weight 137.0 lbs May, Temperature 97.0 degrees Fahrenheit May, BMI 26.75 kg/m2 May, Oximetry 98 % May, Respiratory Rate 16 /min May, Blood pressure systolic 107 mm Hg May, Blood pressure diastolic 61 mm Hg May, MEDICATIONS Medication SIG (Take, Route, Frequency, Start Date End Date Status Duration) Cindi SolKathleenar 300 UNIT/ML INJECT 40 UNITS UNDER THE Active SKIN EVERY MORNING AND 8 UNITS UNDER THE SKIN EVERY NIGHT AT BEDTIME. for 28 OneTouch Ultra Test - TEST THREE TIMES DAILY for Active 90 OneTouch Delica Lancets Fine USE TWICE DAILY for 50 Active - Pioglitazone HCl 15 MG Take 1 tablet by mouth Active daily. for 90 Toujeo SoloStar 300 UNIT/ML inject 40 units qam Active Subcutaneous Once a day for 90 days Pioglitazone HCl 15 MG 1 tablet Orally Once a day Active for 90 days Tradjenta 5 MG 1 tablet Orally Once a day Active for 90 days Cozaar 100 MG 1 tablet Orally Once a day Active for 90 days Eliquis 2.5 MG TK ONE T PO Q 12 H Oral for Active 90 days Aspirin 81 MG 1 tablet Orally Once a day Mar, Active for 90 days Lipitor 40 MG 1 tablet Orally Once a day Active for 90 days Vitamin D3 25 MCG (1000 UT) 1 capsule Orally Once a day Active Coreg 12.5 MG 1 tablet Orally Twice a day Active for 90 days BD Pen Needle Vane U/F 32G X 1 pen needle subcutaneously Nov, Active 4 MM once a day for 90 days Amlodipine Besylate 5 MG 1 tablet Orally Once a day Active for 90 days Spironolactone 25 MG 1 tablet Orally Once a day Active for 90 days OneTouch Ultra Test - USE DIRECTED THREE TIMES Active DAILY for 90 PROCEDURES No Information RESULTS No Results REASON FOR VISIT Hospital f/u. [facility] Stroke. MEDICAL (GENERAL) HISTORY Type Description Date Medical History Diabetes type 2, controlled Medical History Hyperlipidemia, mixed Medical History Benign essential HTN Medical History History of CVA (cerebrovascular accident ) without residual deficits Medical History Iron deficiency anemia secondary to inad equate dietary iron intake Medical History Chronic kidney disease, stage 3 Medical History Osteoarthritis of knee Surgical History No Surgical history information Goals Section No Information Health Concerns No Information MEDICAL EQUIPMENT No Information MENTAL STATUS No Information FUNCTIONAL STATUS No Information ASSESSMENTS Encounter Date Diagnosis Notes May, Chronic kidney disease, stage 4 (severe) (ICD-10 - N18.4) May, Venous insufficiency (ICD-10 - I87.2) May, Type 2 diabetes mellitus with diabetic c hronic kidney disease (ICD-10 - E11.22) May, Heart murmur (ICD-10 - R01.1) May, Hyperlipidemia, mixed (ICD-10 - E78.2) May, Cerebral infarction, unspecified (ICD-10 - I63.9) May, 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 (ICD- 10 - Z79.4) May, Nonrheumatic aortic valve stenosis (ICD- 10 - I35.0) May, Generalized weakness (ICD-10 - R53.1) May, Iron deficiency anemia secondary to inad equate dietary iron intake (ICD-10 - D50.8) May, Paroxysmal a-fib (ICD-10 - I48.0) May, Blind left eye (ICD-10 - H54.40) May, Aphasia (ICD-10 - R47.01) May, At risk for falls (ICD-10 - Z91.81) May, Osteoarthritis of knee (ICD-10 - M17.9) May, Benign essential HTN (ICD-10 - I10) May, Stenosis of left middle cerebral artery (ICD-10 - I66.02) May, Cerebrovascular accident (CVA) involving left middle cerebral artery territory (ICD-10 - I63.512) May, History of CVA (cerebrovascular accident ) without residual deficits (ICD-10 - Z86.73) PLAN OF TREATMENT Medication Medication Name Sig Start Date Stop Date Cozaar 100 MG 1 tablet Orally Once a day for 90 days Amlodipine Besylate 5 MG 1 tablet Orally Once a day for 90 days Tradjenta 5 MG 1 tablet Orally Once a day for 90 days Pioglitazone HCl 15 MG 1 tablet Orally Once a day for 90 days Eliquis 2.5 MG TK ONE T PO Q 12 H Oral for 90 days Lipitor 40 MG 1 tablet Orally Once a day for 90 days Toujeo SoloStar 300 UNIT/ML inject 40 units qam Subcutaneous Once a day for 90 days Coreg 12.5 MG 1 tablet Orally Twice a day for 90 days Spironolactone 25 MG 1 tablet Orally Once a day for 90 days Treatment Notes Assessment Notes Clinical Notes Heart murmur Enoucaged to make appt with cardiology Dr. Fernandez for further instructions. asymptomatic. Cerebrovascular accident (CVA) Hospital course reviewed involving left middle cerebral artery extensively with patie nt and son. territory Limited medical records from [facility]. Some medical records were provided. Compliant with medications. At this time questionable if patient needs to continue Plavix. Agreeable on continuing Eliquis and aspirin. Continuing all 3 would increase bleeding risk significantly. Defer to cardiology and neurology. Patient and son verbalized understanding. Upcoming appoint with neurology on 06/27/2020. At risk for falls Precautions given. Stenosis of left middle cerebral . Managed by neurology artery Nonrheumatic aortic valve stenosis . Managed by cardiology. Discussion given Venous insufficiency Started by Dr. Goodman. Encouraged to monitor BP. Education given. Aphasia . Improving gradually. Consider speech therapy. Paroxysmal a-fib . Converted. Stable managed by cardiology. On Eliquis. Type 2 diabetes mellitus with Goal <7. On Toujeo and Tradjen ta. diabetic chronic kidney disease Education given. Education o n titration. , Diabetes Education Diabetes is a disorder that disrupts the way your body uses glucose (sugar). It is a chronic medication condition that requires regular monitoring and treatment throughout your life. Treatment includes: lifestyle modification, self-care measures, and medication. Fortunately, these treatments can keep the blood sugar levels close to normal and minimize the risk of developing complications. The primary blood test to measure the progress of diabetes is the Hemoglobin A1c. Normal levels is less than 7.0 but less than 6.5 is considered excellent control. Fasting blood sugars should be in the range of 80-120 while random blood sugars should range below 200 especially after meals. Carbohydrate (sugar) intake for diabetics should be below 45 grams per meal and 15 grams per snack. Diabetic preventive care is vital to prevent complications, so it is important to have yearly diabetic eye and foot exams with specialists. If your diabetes is not controlled, then contact your doctor to further address.Medication may need to be adjusted and/or added. Chronic kidney disease, stage 4 Seen by ---> Rex. Labs (severe) faxed. 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 Iron deficiency anemia secondary to Asymptoamtic. inadequate dietary iron intake Hyperlipidemia, mixed Compliant. INCREASED to 40 mg. Side effect discussed. Education given. Benign essential HTN Controlled. Education given. , DASH Diet discussed. Instructed to measure BP at home and bring in log to f/u appt. Instructions and logs given. Education given. Osteoarthritis of knee Stable with OTC medications. Next Appt Details as scheduled Reason: Provider Name:Andreas Pitts, 2020-08-28 1 0:00:00 AM, [address], [place], [address], Provider Name:Andreas Pitts, 2020-09-20 1 1:00:00 AM, [address], [address], [place], [address], Provider Name:Andreas Pitts, 2020-09-20 1 1:00:00 AM, [address], [address], [place], [address], Insurance Providers Payer Name Payer Payer Insured Patient Coverage Coverage End Address Phone Name Relationship to Start Date Abhay e Insured [phone] Janina Rouse [facility] HEALTHCARE [id number] [place] [address]
--- OUTSIDE RECORDS SUMMARY | 2020-07-31 12:54 | XMS REPORT ---
:1940 Author Organization [facility] Address [address], [address] [place] [address] Care Team Providers Name Role Phone Pitts Unavailable [phone] PROBLEMS Type Condition ICD9-CM [id number] Onset Condition SNOMED Code Notes Code Code Dates Status Problem Iron deficiency D50.8 Active 760320096 anemia secondary to inadequate dietary iron intake Problem Osteoarthritis of M17.9 Active 817799975 knee Problem Chronic kidney N18.3 Active 492067932 disease, stage 3 Problem Hyperlipidemia, E78.2 Active 406391221 mixed Problem History of CVA Z86.73 Active 694135679 (cerebrovascular accident) without residual deficits Problem Diabetes type 2, E11.9 Active 319691721 controlled Problem Benign essential I10 Active 84735674 HTN Problem Type 2 diabetes E11.22 Active 49869680 mellitus with diabetic chronic kidney disease Problem senior care Z79.4 Active 733386802 (current) use of insulin Problem Chronic kidney N18.4 Active 157742800 disease, stage 4 (severe) Problem Cerebral I63.9 Active 82924101 infarction, unspecified Problem Venous I87.2 Active 83938272 insufficiency Problem Aphasia R47.01 Active 99153789 Problem 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 179015898 Problem Cerebrovascular I63.512 Active 759119521 accident (CVA) involving left middle cerebral artery territory Problem 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 [address], [place] [address] IMMUNIZATIONS No Information SOCIAL HISTORY Tobacco Use: [...] REASON FOR REFERRAL No Information VITAL SIGNS No information MEDICATIONS Medication SIG (Take, Route, Frequency, Start Date End Date Status Duration) Pioglitazone HCl 15 MG Take 1 tablet by mouth Active daily. for 90 OneTouch Ultra Test - TEST THREE TIMES DAILY for Active 90 OneTouch Delica Lancets Fine USE TWICE DAILY for 50 Active - Lipitor 40 MG 1 tablet Orally Once a day Active for 90 days Pioglitazone HCl 15 MG [...] a day Mar, Active for 90 days Toujeo SoloStar 300 UNIT/ML INJECT 40 UNITS UNDER THE Active SKIN EVERY MORNING AND 8 UNITS UNDER THE SKIN EVERY NIGHT AT BEDTIME. for 28 Vitamin D3 25 MCG (1000 UT) 1 [...] Information RESULTS No Results REASON FOR VISIT HH med question MEDICAL (GENERAL) HISTORY Type Description Date Medical [...] No Information FUNCTIONAL STATUS No Information ASSESSMENTS No Information PLAN OF TREATMENT Medication Medication Name Sig [...] Q 12 H Oral for 90 days Toujeo SoloStar 300 UNIT/ML INJECT 40 UNITS UNDER THE SKIN EVERY MORNING AND 8 UNITS UNDER THE SKIN EVERY NIGHT AT BEDTIME. for 28 Lipitor 40 MG 1 tablet Orally Once a day for 90 days Coreg 12.5 MG 1 tablet Orally Twice a day for 90 days Spironolactone 25 MG 1 tablet Orally Once a day for 90 days Next Appt Details Provider Name:Andreas Pitts, 2020-08-28 1 0:00:00 AM, [address], [address], [place], [address], Provider Name:Andreas Pitts, 2020-09-20 1 1:00:00 AM, [address], [address], [place], [address], Provider Name:Andreas Pitts, 2020-09-20 1 1:00:00 AM, [address], [address], [place], [address], Insurance Providers Payer Name Payer Payer Insured Patient Coverage Coverage End Address Phone Name Relationship to Start Date Abhay e Insured [phone] Janina Rouse [facility]ALTHCARE [address] [place] [address]
[2020-07-31] MEDS ORDERED: NA CHLORIDE 0.9% 500 ML ONE (13:29)
[2020-07-31] MEDS ORDERED: ONDANSETRON 4 MG/2 ML VIAL ONE (13:29)
[2020-07-31 13:52] LABS: Absolute Lymphocytes (CBC) 1.8 K/uL (0.7-4.9); Basophils % 0.6 % (0-1.3); Hematocrit 37.5 % (36.0-45.0); Lymphocytes % 21.8 % (15.3-44.8); RBC Red Blood Cell Count 4.17 M/uL (3.86-4.86)
[2020-07-31 14:10] LABS: Albumin 3.6 g/dL (3.4-5.0); Bilirubin Direct 0.1 mg/dL (0-0.2); Bilirubin Total 0.5 mg/dL (0.2-1.0); Potassium 4.5 mmol/L (3.5-5.1); Protein, Total 8.3 g/dL (6.4-8.2)
--- NOTE | 2020-07-31 14:55 | RAD REPORT ---
EXAM DESCRIPTION: CT - Chest Abd Pelvis Wo Con - 07/31/2020 2:27 pm CLINICAL HISTORY: Chest and abdominal pain. Vomiting COMPARISON: none TECHNIQUE: Computed axial tomography of the chest, abdomen and pelvis was obtained. Oral contrast wa s given. IV contrast was not requested. All CT scans are performed using dose optimization technique as appropriate and may include automated exposure control or mA/KV adjustment according to patient size. FINDINGS: The evaluation of mediastinum, trip, vessels and solid organs is limited secondary to the lack of IV contrast administration No mediastinal or hilar lymphadenopathy is seen. A pleural effusion is not present. A pericardial effusion is not seen. Coronary arterial calcifications are present A tiny nodule abuts the right fissure likely benign. A few areas of scarring are present within the l ungs. The liver, spleen, pancreas, adrenals and kidneys appear grossly normal There is no evidence of diverticulitis. Normal appendix. Calcified uterine fibroids. Mild anterior subluxation L5 on S1. Spondylolysis L5 Atherosclerotic disease. . Cholecystectomy IMPRESSION: No acute abnormality is displayed
--- NOTE | 2020-07-31 15:50 | EDPHYS ---
Physician Documentation [facility] Name: Marielle Rouse Age: 79 yrs Sex: Female : 1940 Arrival Date: 07/31/2020 Time: 12:53 Bed 7 Private MD: Laura Alvarado C ED Physician Uche Lacy HPI: 07/31 13:12 This 79 yrs old Female presents to ER via Wheelchair with complaints of rn Nausea, Dizziness, Decreased Appetite. 13:12 The patient presents to the emergency department with nausea, vomiting. Onset: The rn symptoms/episode began/occurred 3 day(s) ago. Possible causes: unknown. The symptoms are aggravated by nothing. The symptoms are alleviated by nothing. Associated signs and symptoms: Pertinent positives: anorexia, nausea, vomiting, Pertinent negatives: constipation, diarrhea, fever. Severity of symptoms: At their worst the symptoms were mild in the emergency department the symptoms are unchanged. The patient has not experienced similar symptoms in the past. The patient has not recently seen a physician. Reports nausea/vomiting/decreased PO intake since Friday, no abd pain, not able to hold down her medication, + dizziness and generalized weakness. Reports recently started new dementia medication a few weeks ago but no other changes to medication.. Historical: - Allergies: 13:18 No Known Allergies; iw - Home Meds: 13:18 amlodipine oral once daily [Active]; atorvastatin oral oral once daily [Active]; iw donepezil oral oral nightly [Active]; losartan oral oral once daily [Active]; carvedilol oral oral [Active]; Eliquis oral 2 times per day [Active]; Spironolactone Oral [Active]; - PMHx: 13:18 CVA; Dementia; Hypertension; Diabetes - IDDM; iw - PSHx: 13:18 None; iw - Immunization history:: Adult Immunizations not up to date. - Social history:: Smoking status: Patient denies any tobacco usage or history of. - Family history:: not pertinent. - Hospitalizations: : No recent hospitalization is reported. ROS: 13:12 Constitutional: Negative for fever, chills, and weight loss, Eyes: Negative for injury, rn pain, redness, and discharge, Neck: Negative for injury, pain, and swelling, Cardiovascular: Negative for chest pain, palpitations, and edema, Respiratory: Negative for shortness of breath, cough, wheezing, and pleuritic chest pain, Abdomen/GI: + nausea/vomiting Back: Negative for injury and pain, MS/Extremity: Negative for injury and deformity, Skin: Negative for injury, rash, and discoloration, Neuro: Negative for headache, numbness, tingling, and seizure. Exam: 13:12 Constitutional: This is a well developed, well nourished patient who is awake, alert, rn and in no acute distress. Head/Face: Normocephalic, atraumatic. ENT: dry MM Cardiovascular: Regular rate and rhythm. No pulse deficits. Respiratory: No increased work of breathing, no retractions or nasal flaring. Abdomen/GI: soft, non-tender Skin: Warm, dry MS/ Extremity: Pulses equal, no cyanosis. Neuro: Awake and alert, GCS 15. Motor strength 4/5 all 4 extremities. Slow speech but able to put words together. Vital Signs: 13:08 BP 132 / 60; Pulse 69; Resp 16; Temp 97.6; Pulse Ox 98% on R/A; iw 15:06 BP 114 / 58; Pulse 77; Resp 19; Pulse Ox 98% ; jl7 16:00 BP 130 / 68; Pulse 78; Resp 16; Pulse Ox 98% ; jl7 18:06 BP 119 / 70; Pulse 76; Resp 17; Pulse Ox 99% ; jl7 MDM: 13:03 Patient medically screened. rn 15:43 Differential diagnosis: viral gastroenteritis, gastroenteritis, gastritis, viral rn syndrome, dehydration, weakness, renal failure. Data reviewed: vital signs, nurses notes, lab test result(s), radiologic studies, CT scan, and as a result, I will. 15:46 Counseling: I had a detailed discussion with the patient and/or guardian regarding: the rn historical points, exam findings, and any diagnostic results supporting the discharge/admit diagnosis, lab results, radiology results, the need for further work-up and treatment in the hospital. Response to treatment: the patient's symptoms have mildly improved after treatment, and as a result, I will admit patient. Admission orders: after a detailed discussion of the patient's condition and case, the admit orders are written by me. ED course: Pt with weakness, fatigue, dehydrated, slightly worsening renal function, unable to keep down her medication or drink water, will obs to Dr. Guevara for further care. Urine pending, COVID pending.. 07/31 13:12 Order name: Basic Metabolic Panel rn 07/31 13:12 Order name: CBC with Diff rn 07/31 13:12 Order name: Hepatic Function rn 07/31 13:12 Order name: Lipase rn 07/31 14:01 Order name: CBC with Automated Diff; Complete Time: 14:13 EDFL 07/31 14:10 Order name: Basic Metabolic Panel; Complete Time: 14:13 EDFL 07/31 13:12 Order name: CT Abd/Pelvis - IV Contrast Only rn 07/31 14:10 Order name: Liver (Hepatic) Function; Complete Time: 14:13 EDFL 07/31 14:10 Order name: Lipase; Complete Time: 14:13 EDFL 07/31 15:00 Order name: CT; Complete Time: 15:26 EDFL 07/31 15:46 Order name: COVID-19 07/31 16:26 Order name: CORONAVIRUS EDFL 07/31 18:24 Order name: Urine Microscopic Only [facility] 07/31 18:30 Order name: Urine Dipstick--Ancillary (enter results) 07/31 13:12 Order name: IV Saline Lock; Complete Time: 13:48 07/31 13:12 Order name: Labs collected and sent; Complete Time: 13:48 rn 07/31 13:12 Order name: EKG; Complete Time: 14:45 07/31 13:12 Order name: EKG - Nurse/Tech; Complete Time: 13:38 rn 07/31 15:46 Order name: Urine Dipstick-Ancillary (obtain specimen); Complete Time: 18:25 rn 07 15:46 Order name: XRAY Chest (1 view) 07/31 18:11 Order name: RAD [facility] Administered Medications: 13:30 Drug: Zofran (Ondansetron) 4 mg Route: IVP; Site: right antecubital; jl7 14:00 Follow up: Response: No adverse reaction jl7 13:30 Drug: NS 0.9% 500 ml Route: IV; Rate: bolus; Site: right antecubital; jl7 14:00 Follow up: Response: No adverse reaction; IV Status: Completed infusion; IV Intake: jl7 500ml Disposition: 07/31/20 15:49 Hospitalization ordered by Baron Guevara for Observation. Preliminary diagnosis are Dehydration, Weakness, Unspecified kidney failure. - Bed requested for Telemetry/MedSurg (observation). - Status is Observation. jl7 - Condition is Stable. - Problem is new. - Symptoms have improved. Signatures: Dispatcher [employer] EDMarija Esquivel RN RN dw Williams, Irene, RN RN iw Nieto, Roman, MD MD rn Leal, Jahala, RN RN jl7 Corrections: (The following items were deleted from the chart) 17:54 15:49 Hospitalization Ordered by Baron Guevara DO for Observation. Preliminary dw diagnosis is Dehydration; Weakness; Unspecified kidney failure. Bed requested for Telemetry/MedSurg (observation). Status is Observation. Condition is Stable. Problem is new. Symptoms have improved. rn 18:36 17:54 07/31/2020 15:49 Hospitalization Ordered by Baron Guevara DO for Observation. jl7 Preliminary diagnosis is Dehydration; Weakness; Unspecified kidney failure. Bed requested for Telemetry/MedSurg (observation). Status is Observation. Condition is Stable. Problem is new. Symptoms have improved. ritesh
--- NOTE | 2020-07-31 15:50 | ER ---
Nurse's Notes [facility] Name: Marielle Rouse Age: 79 yrs Sex: Female : 1940 Arrival Date: 07/31/2020 Time: 12:53 Bed 7 Private MD: Laura Alvarado C Diagnosis: Dehydration;Weakness;Unspecified kidney failure Presentation: 07/31 13:08 Chief complaint: Patient's son or daughter states: pt has been fatigued, dizzy, iw nauseated since Friday, vomited once on Friday and it looked black with mucous, c/o abd pain, started a new dementia medication. Coronavirus screen: fatigue, nausea, vomiting. Client presents with at least one sign or symptom that may indicate coronavirus-19. Standard/surgical mask placed on the client. Provider contacted for isolation considerations. Ebola Screen: Patient negative for fever greater than or equal to 101.5 degrees Fahrenheit, and additional compatible Ebola Virus Disease symptoms Patient denies exposure to infectious person. Patient denies travel to an Ebola-affected area in the 21 days before illness onset. No symptoms or risks identified at this time. Initial Sepsis Screen: Does the patient meet any 2 criteria? No. Patient's initial sepsis screen is negative. Does the patient have a suspected source of infection? No. Patient's initial sepsis screen is negative. Risk Assessment: Do you want to hurt yourself or someone else? Patient reports no desire to harm self or others. Onset of symptoms was July 29, 2020. 13:08 Method Of Arrival: Wheelchair iw 13:08 Acuity: DERRICK 3 iw Historical: - Allergies: 13:18 No Known Allergies; iw - Home Meds: 13:18 amlodipine oral once daily [Active]; atorvastatin oral oral once daily [Active]; iw donepezil oral oral nightly [Active]; losartan oral oral once daily [Active]; carvedilol oral oral [Active]; Eliquis oral 2 times per day [Active]; Spironolactone Oral [Active]; - PMHx: 13:18 CVA; Dementia; Hypertension; Diabetes - IDDM; iw - PSHx: 13:18 None; iw - Immunization history:: Adult Immunizations not up to date. - Social history:: Smoking status: Patient denies any tobacco usage or history of. - Family history:: not pertinent. - Hospitalizations: : No recent hospitalization is reported. Screenin:39 Abuse screen: Denies threats or abuse. Denies injuries from another. Nutritional jl7 screening: No deficits noted. Tuberculosis screening: No symptoms or risk factors identified. Fall Risk IV access (20 points). Total Chavez Fall Scale indicates No Risk (0-24 pts). Assessment: 13:39 General: Appears in no apparent distress. uncomfortable, Behavior is calm, cooperative, jl7 appropriate for age. Pain: Complains of pain in abdomen. Neuro: Level of Consciousness is awake, alert, obeys commands, Oriented to person, place, time, situation. Cardiovascular: Patient's skin is warm and dry. Respiratory: Airway is patent Respiratory effort is even, unlabored, Respiratory pattern is regular, symmetrical. GI: Abdomen is non-distended, Reports nausea, vomiting. Derm: Skin is pale. 15:00 Reassessment: Patient appears in no apparent distress at this time. No changes from jl7 previously documented assessment. Patient and/or family updated on plan of care and expected duration. Pain level reassessed. Patient is alert, oriented x 3, equal unlabored respirations, skin warm/dry/pink. 16:00 Reassessment: Patient appears in no apparent distress at this time. No changes from jl7 previously documented assessment. Patient and/or family updated on plan of care and expected duration. Pain level reassessed. Patient is alert, oriented x 3, equal unlabored respirations, skin warm/dry/pink. Vital Signs: 13:08 BP 132 / 60; Pulse 69; Resp 16; Temp 97.6; Pulse Ox 98% on R/A; iw 15:06 BP 114 / 58; Pulse 77; Resp 19; Pulse Ox 98% ; jl7 16:00 BP 130 / 68; Pulse 78; Resp 16; Pulse Ox 98% ; jl7 18:06 BP 119 / 70; Pulse 76; Resp 17; Pulse Ox 99% ; jl7 ED Course: 12:53 Patient arrived in ED. ag5 12:53 Laura Alvarado MD is Private Physician. ag5 12:59 Flora Farr, RN is Primary Nurse. jl7 13:03 Uche Lacy MD is Attending Physician. rn 13:10 Triage completed. iw 13:17 EKG done, by ED staff, reviewed by Uche Lacy MD. em1 13:18 Arm band placed on. iw 13:25 Missed attempt(s): 20 gauge in right forearm. Bleeding controlled, band aid applied, jl7 catheter tip intact. 13:30 Initial lab(s) drawn, by me, sent to lab. Inserted saline lock: 20 gauge in right jl7 antecubital area, using aseptic technique. Blood collected. 13:39 Patient has correct armband on for positive identification. Placed in gown. Bed in low jl7 position. Call light in reach. Side rails up X 1. Pulse ox on. NIBP on. Warm blanket given. 15:48 Baron Guevara DO is Hospitalizing Provider. rn 16:10 COVID swab sent to lab. 7 18:00 Urine collected: clean catch specimen, cloudy. jl7 18:04 No provider procedures requiring assistance completed. Patient admitted, IV remains in jl7 place. intact, No redness/swelling at site. Administered Medications: 13:30 Drug: Zofran (Ondansetron) 4 mg Route: IVP; Site: right antecubital; 7 14:00 Follow up: Response: No adverse reaction jl7 13:30 Drug: NS 0.9% 500 ml Route: IV; Rate: bolus; Site: right antecubital; 7 14:00 Follow up: Response: No adverse reaction; IV Status: Completed infusion; IV Intake: [facility] 500ml Intake: 14:00 IV: 500ml; Total: 500ml. [facility] Outcome: 15:49 Decision to Hospitalize by Provider. rn 18:04 Admitted to Med/surg accompanied by tech, family with patient, via stretcher, room 219, [facility] with chart, Report called to KYLE Ba 18:04 Condition: stable 18:04 Discharge instructions given to patient, family, Instructed on the need for admit, Demonstrated understanding of instructions. 18:36 Patient left the ED. jl7 Signatures: Josie Buck, KYLE WRIGHT iw Uche Lacy MD MD rn Martinez, Eric em1 Flora Farr RN RN jl7 Lesia aCbrera ag5
--- NOTE | 2020-07-31 17:02 | P.HP ---
Certification for Inpatient Patient admitted to: Observation With expected LOS: <2 Midnights Patient will require the following post-hospital care: None Practitioner: I am a practitioner with admitting privileges, knowledge of patient current condition, hospital course, and medical plan of care. Services: Services provided to patient in accordance with Admission requirements found in Title 42 Section 412.3 of the Code of Federal Regulations Patient History Date of Service: 07/31/20 Primary Care Provider: Dr. Pitts; Nephrology-Dr. Hidalgo Reason for admission: Fatigue, nausea History of Present Illness: 79-year-old female with history of chronic renal disease, prior CVA, dementia, hypertension and diabetes. Patient presented to the emergency room with nausea and vomiting noted with the last several days. Daughter reports patient has increased fatigue mainly at night. Denies any fever, chills, congestion. No gavi with recent viral infection. She does report some medication recently adjusted this includes Aricept for dementia. Family thinks this may be related to her medication. She denies any abdominal pain, diarrhea or constipation. She came to the ER for further evaluation. In the ER patient evaluated. White count 8.2, hemoglobin 12.4. Platelet count 172. Sodium 140, potassium 4.5. BN of 55, creatinine 2.97 with a GFR 15. Glucose 141. Lipase 398. CT scan of the abdomen unremarkable. Chest x-ray unremarkable. Prior GFR 26. Patient admitted for further evaluation and treatment. When saw the patient ER, patient appeared comfortable. She did appear slightly on the dry side. Allergies ibuprofen Adverse Reaction (Verified 05/30/20 15:56) Shortness of breath Home medications list reviewed: Yes Home Medications: Amlodipine Besylate 10 mg PO DAILY 05/30/20 Atorvastatin Calcium 40 mg PO DAILY 05/30/20 Carvedilol [Coreg] 12.5 mg PO BID 05/30/20 Cholecalciferol (Vitamin D3) [Vitamin D3] 2,000 unit PO DAILY 05/30/20 Clopidogrel Bisulfate [Plavix] 75 mg PO DAILY 05/30/20 Insulin Glargine,Hum.rec.anlog [Toujeo Solostar] 8 units SQ BEDTIME 05/30/20 Insulin Glargine,Hum.rec.anlog [Toujeo Solostar] 40 units SQ DAILY 05/30/20 Linagliptin [Tradjenta] 1 tab PO DAILY 05/30/20 Losartan Potassium 100 mg PO DAILY 05/30/20 Sodium Bicarbonate 650 mg PO BID 05/30/20 Spironolactone 25 mg PO DAILY 05/30/20 Clopidogrel Bisulfate [Plavix*] 75 mg PO DAILY #30 tablet 06/03/20 Enoxaparin Sodium [Lovenox 30 MG INJ*] 30 mg SQ DAILY #14 syr 06/03/20 - Past Medical/Surgical History Diabetic: Yes -: Diabetes mellitus type 2 insulin-dependent -: History CVA -: HTN -: Hyperlipidemia -: Chronic renal disease stage 4 Past Surgical History: Reviewed- Non-Contributory Psychosocial/ Personal History: Patient lives at home with son - Family History Family History: Reviewed- Non-Contributory - Social History Smoking Status: Never smoker Alcohol use: No CD- Drugs: No Caffeine use: No Place of Residence: Home Review of Systems General: Weakness, As per HPI Eyes: Unremarkable ENT: Unremarkable Respiratory: Unremarkable Cardiovascular: Unremarkable Gastrointestinal: Nausea, Vomiting, As per HPI Genitourinary: Unremarkable Musculoskeletal: Unremarkable Integumentary: Unremarkable Neurological: Unremarkable Lymphatics: Unremarkable Physical Examination - Physical Exam General: Alert, In no apparent distress, Cooperative, Demented HEENT: Atraumatic, Other (Dry mucous membranes) Neck: Supple Respiratory: Clear to auscultation bilaterally, Normal air movement Cardiovascular: Normal pulses, Regular rate/rhythm, Systolic murmur Gastrointestinal: Normal bowel sounds, Non-distended, No tenderness, No masses, No rebound, No guarding Musculoskeletal: No erythema, No tenderness, No warmth Integumentary: No erythema, No warmth, No cyanosis Neurological: Normal speech, Normal strength at 5/5 x4 extr, Normal tone, Dementia - Studies Laboratory Data (last 24 hrs) 07/31/20 13:26: WBC 8.2, Hgb 12.4, Hct 37.5, Plt Count 172 07/31/20 13:26: Sodium 140, Potassium 4.5, BUN 55 H, Creatinine 2.97 H, Glucose 141 H, Total Bilirubin 0.5, AST 13 L, ALT 14, Alkaline Phosphatase 89, Lipase 398 H Assessment and Plan - Plan Impression: Nausea, vomiting with fatigue likely acute on chronic renal failure stage 4 with dehydration Hypertension Diabetes mellitus type 2 insulin-dependent Dementia History CVA On chronic anti coagulation therapy-Eliquis Plan: Patient will be admitted for further evaluation and treatment. Suspect patient with mild dehydration due to nausea and vomiting an worsening renal function. Will hold losartan and Aldactone. Will provide low-dose IV fluids. Consult nephrology for further recommendation. Patient reported adjustment in Aricept recently. Will need to obtain and verify home medication. Will need to discuss further with nephrology on whether medications can be further adjusted. Continue other medications including Norvasc, Lipitor, Eliquis, and carvedilol. Will provide sliding scale for her diabetes. Will continue monitor closely. Anticipate improvement over the next 24 hr with possible discharge tomorrow. Advance care planning-30 min addressed in detail. Patient is full code. Daughter reports patient has home health. This can be continued at discharge. Discharge Plan: Home Plan to discharge in: 24 Hours - Advance Directives Does patient have a Living Will: No Does patient have a Durable POA for Healthcare: No - Code Status/Comfort Care Code Status Assessed: Yes (Patient is full code) Time Spent Managing Pts Care (In Minutes): 55
--- NOTE | 2020-07-31 18:07 | RAD REPORT ---
EXAM DESCRIPTION: Darryl Single View07/31/2020 4:58 pm CLINICAL HISTORY: Chest pain COMPARISON: May 2020 FINDINGS: The lungs appear clear of acute infiltrate. The heart is normal size IMPRESSION: No acute abnormalities displayed
[2020-07-31] MEDS ORDERED: ACETAMINOPHEN 500 MG TAB PO PRN (18:41)
[2020-07-31] MEDS ORDERED: ONDANSETRON 4 MG/2 ML VIAL IV PRN (18:41)
[2020-07-31 18:46] LABS: Urine Bacteria <20 /HPF (<20); Urine Mucus 1+ /HPF (NONE SEEN); Urine RBC <5 /HPF (NONE SEEN); Urine Yeast PRESENT (NONE SEEN)
[2020-07-31] MEDS: NA CHLORIDE 0.9% 1,000 ML IV SCH (20:30)
[2020-07-31] MEDS: INSULIN -REGULAR HUMAN 50 UNIT/0.5 ML ML SQ SCH (21:00)
[2020-07-31] MEDS ORDERED: ATORVASTATIN 40 MG TAB PO SCH (21:00)
[2020-07-31] MEDS: APIXABAN 2.5 MG TABLET PO SCH (21:44)
[2020-07-31] MEDS: carvediloL 12.5 MG TAB PO SCH (21:46)
[2020-07-31 22:30] VITALS: BMI 25.7
[2020-07-31 22:35] LABS: Urine Appearance CLOUDY; Urine Bilirubin NEGATIVE (NEG); Urine Blood NEGATIVE (NEG); Urine Color YELLOW; Urine Glucose NEGATIVE (NEG); Urine Protein NEGATIVE (NEG); Urine Urobilinogen 0.2 mg/dL (0.2-1.0); Urine pH 5.5 (5.0-7.0)
[2020-07-31 22:40] LABS: Urine Microscopic Reflex ORDER UMIC
[2020-07-31 22:55] LABS: Urine Bacteria <20 /HPF (<20); Urine RBC <5 /HPF (NONE SEEN); Urine Yeast MANY (NONE SEEN)
[2020-08-01 05:34] LABS: Absolute Lymphocytes (CBC) 1.8 K/uL (0.7-4.9); Basophils % 0.3 % (0-1.3); Hematocrit 32.7 % (36.0-45.0); Lymphocytes % 26.5 % (15.3-44.8); RBC Red Blood Cell Count 3.61 M/uL (3.86-4.86)
[2020-08-01 05:35] LABS: Magnesium 2.6 mg/dL (1.8-2.4); Phosphorus 3.4 mg/dL (2.5-4.9); Potassium 4.6 mmol/L (3.5-5.1); Thyroid Stimulating Hormone 2.13 uIU/mL (0.360-3.740); Uric Acid 8.9 mg/dL (2.6-6.0)
[2020-08-01] MEDS: carvediloL 12.5 MG TAB PO SCH (06:36)
[2020-08-01] MEDS: INSULIN -REGULAR HUMAN 50 UNIT/0.5 ML ML SQ SCH ×3 (07:30→16:30)
--- NOTE | 2020-08-01 08:16 | P.CNS ---
Date of Consult: 08/01/20 Reason for Consult: JACOBO/ CKD Requesting Physician: Baron Guevara Primary Care Provider: Dr. Pitts; Nephrology-Dr. Hidalgo Chief Complaint: Fatigue, nausea History of Present Illness: 79-year-old female with history of chronic renal disease, prior CVA, dementia, hypertension and diabetes. Patient presented to the emergency room with nausea and vomiting noted with the last several days. Daughter reports patient has increased fatigue mainly at night. Denies any fever, chills, congestion. No gavi with recent viral infection. She does report some medication recently adjusted this includes Ar icept for dementia. Family thinks this may be related to her medication. She denies any abdominal pain, diarrhea or constipation. She came to the ER for further evaluation. 13:12 This 79 yrs old Female presents to ER via Wheelchair with complaints of rn Nausea, Dizziness, Decreased Appetite. 13:12 The patient presents to the emergency department with nausea, vomiting. Onset: The rn symptoms/episode began/occurred 3 day(s) ago. Possible causes: unknown. The symptoms are aggravated by nothing. The symptoms are alleviated by nothing. Associated signs and symptoms: Pertinent positives: anorexia, nausea, vomiting, Pertinent negatives: constipation, diarrhea, fever. Severity of symptoms: At their worst the symptoms were mild in the emergency department the symptoms are unchanged. The patient has not experienced similar symptoms in the past. The patient has not recently seen a physician. Reports nausea/vomiting/decreased PO intake since Friday, no abd pain, not able to hold down her medication, + dizziness and generalized weakness. Reports recently started new dementia medication a few weeks ago but no other changes to medication Allergies capsaicin [From Allevess Patch] Allergy (Verified 07/31/20 18:47) Hives menthol [From Allevess Patch] Allergy (Verified 07/31/20 18:47) Hives ibuprofen Adverse Reaction (Verified 05/30/20 15:56) Shortness of breath Home medications list reviewed: Yes Home Medications: Amlodipine Besylate 10 mg PO DAILY 05/30/20 Atorvastatin Calcium 40 mg PO DAILY 05/30/20 Carvedilol [Coreg] 12.5 mg PO BID 05/30/20 Insulin Glargine,Hum.rec.anlog [Cindi Mariee] 8 units SQ BEDTIME 05/30/20 Insulin Glargine,Hum.rec.anlog [Cindi Mariee] 40 units SQ DAILY 05/30/20 Apixaban [Eliquis *] 1 tab PO BID 08/01/20 Donepezil HCl 1 tab PO DAILY 08/01/20 - Past Medical/Surgical History Diabetic: Yes -: Diabetes mellitus type 2 insulin-dependent -: History CVA -: HTN -: Hyperlipidemia -: Chronic renal disease stage 4 Psychosocial/ Personal History: Patient lives at home with son - Social History Smoking Status: Unknown if ever smoked Alcohol use: No CD- Drugs: No Caffeine use: Yes Place of Residence: Home Review of Systems 10-point ROS is otherwise unremarkable General: Weakness, Malaise Gastrointestinal: Nausea Neurological: Weakness Physical Examination Temp Pulse Resp BP Pulse Ox 97.7 F 63 16 120/57 L 92 08/01/20 04:00 08/01/20 06:36 08/01/20 04:00 08/01/20 06:36 08/01/20 04:00 General: In no apparent distress, Oriented x3, Cooperative HEENT: Atraumatic Neck: Supple Respiratory: Clear to auscultation bilaterally Cardiovascular: No edema, Regular rate/rhythm Gastrointestinal: Soft and benign, Non-distended Musculoskeletal: No clubbing, No contractures Integumentary: No rashes, No cyanosis Neurological: Normal speech Laboratory Data (last 24 hrs) 07/31/20 13:26: WBC 8.2, Hgb 12.4, Hct 37.5, Plt Count 172 07/31/20 13:26: Sodium 140, Potassium 4.5, BUN 55 H, Creatinine 2.97 H, Glucose 141 H, Total Bilirubin 0.5, AST 13 L, ALT 14, Alkaline Phosphatase 89, Lipase 398 H 07/31/20 13:12: WBC Cancelled, Hgb Cancelled, Hct Cancelled, Plt Count Cancelled 07/31/20 13:12: Sodium Cancelled, Potassium Cancelled, BUN Cancelled, Creatinine Cancelled, Glucose Cancelled, Total Bilirubin Cancelled, AST Cancelled, ALT Cancelled, Alkaline Phosphatase Cancelled, Lipase Cancelled Imagings Data: EXAM DESCRIPTION: RADChest Single View07/31/2020 4:58 pm CLINICAL HISTORY: Chest pain COMPARISON: May 2020 FINDINGS: The lungs appear clear of acute infiltrate. The heart is normal size IMPRESSION: No acute abnormalities displayed EXAM DESCRIPTION: CT - Chest Abd Pelvis Wo Con - 07/31/2020 2:27 pm CLINICAL HISTORY: Chest and abdominal pain. Vomiting COMPARISON: none TECHNIQUE: Computed axial tomography of the chest, abdomen and pelvis was obtained. Oral contrast was given. IV contrast was not requested. All CT scans are performed using dose optimization technique as appropriate and may include automated exposure control or mA/KV adjustment according to patient size. FINDINGS: The evaluation of mediastinum, trip, vessels and solid organs is limited secondary to the lack of IV contrast administration No mediastinal or hilar lymphadenopathy is seen. A pleural effusion is not present. A pericardial effusion is not seen. Coronary arterial calcifications are present A tiny nodule abuts the right fissure likely benign. A few areas of scarring are present within the lungs. The liver, spleen, pancreas, adrenals and kidneys appear grossly normal There is no evidence of diverticulitis. Normal appendix. Calcified uterine fibroids. Mild anterior subluxation L5 on S1. Spondylolysis L5 Atherosclerotic disease. . Cholecystectomy IMPRESSION: No acute abnormality is displayed Conclusions/Impression: A/ JACOBO due to hypovolemia Acidosis CKD IV HTN with CKD DM II with CKD Anemia in chronic illness P/ Continue current POC and Medications Continue IVF. Medications adjusted as discussed. No NSAIDs. AM labs. Daily weight. Thank you kindly for the consultation. Case reviewed with Dr. Guevara
[2020-08-01] MEDS ORDERED: AMLODIPINE 10 MG TAB PO SCH (09:00)
[2020-08-01] MEDS: APIXABAN 2.5 MG TABLET PO SCH (10:30)
--- NOTE | 2020-08-01 12:04 | EKG ---
Test Date: 2020-07-31 Test Time: 13:16:59 Shell Machine Operator: MANNY MEASUREMENT RESULTS: Intervals: Rate: 67 AK: 224 QRSD: 82 QT: 426 QTc: 450 Perry: P: 48 AK: 224 QRS: 4 T: 89 INTERPRETIVE STATEMENTS: Sinus rhythm with 1st degree AV block Left ventricular hypertrophy with repolarization abnormality Abnormal ECG Compared to ECG 05/30/2020 12:01:26 Early repolarization now present T-wave abnormality no longer present Electronically Signed On 08-01-20 11:52:32 [employer] by Tommy Urban
[2020-08-01 12:39] VITALS: TEMP 96.9
[2020-08-01 12:45] VITALS: O2SAT 95
--- NOTE | 2020-08-01 13:02 | P.DS ---
Admission Date: 07/31/20 Discharge Date: 08/01/20 Primary Care Provider: Dr. Pitts; Nephrology-Dr. Hidalgo Disposition: ROUTINE DISCHARGE Discharge Condition: GOOD Reason for Admission: Fatigue, nausea Consultations: Nephrology-Dr. Hidalgo Procedures: CXR: COMPARISON: May 2020 FINDINGS: The lungs appear clear of acute infiltrate. The heart is normal size IMPRESSION: No acute abnormalities displayed CT Scan: FINDINGS: The evaluation of mediastinum, trip, vessels and solid organs is limited secondary to the lack of IV contrast administration No mediastinal or hilar lymphadenopathy is seen. A pleural effusion is not present. A pericardial effusion is not seen. Coronary arterial calcifications are present A tiny nodule abuts the right fissure likely benign. A few areas of scarring are present within the lungs. The liver, spleen, pancreas, adrenals and kidneys appear grossly normal There is no evidence of diverticulitis. Normal appendix. Calcified uterine fibroids. Mild anterior subluxation L5 on S1. Spondylolysis L5 Atherosclerotic disease. . Cholecystectomy IMPRESSION: No acute abnormality is displayed Medical Problem List: Nausea, vomiting with fatigue likely acute on chronic renal failure stage 4 with dehydration Hypertension Diabetes mellitus type 2 insulin-dependent Dementia History CVA On chronic anti coagulation therapy-Eliquis Brief History of Present Illness: 79-year-old female with history of chronic renal disease, prior CVA, dementia, hypertension and diabetes. Patient presented to the emergency room with nausea and vomiting noted with the last several days. Daughter reports patient has increased fatigue mainly at night. Denies any fever, chills, congestion. No gavi with recent viral infection. She does report some medication recently adjusted this includes Aricept for dementia. Family thinks this may be related to her medication. She denies any abdominal pain, diarrhea or constipation. She came to the ER for further evaluation. In the ER patient evaluated. White count 8.2, hemoglobin 12.4. Platelet count 172. Sodium 140, potassium 4.5. BN of 55, creatinine 2.97 with a GFR 15. Glucose 141. Lipase 398. CT scan of the abdomen unremarkable. Chest x-ray unremarkable. Prior GFR 26. Patient admitted for further evaluation and treatment. When saw the patient ER, patient appeared comfortable. She did appear slightly on the dry side. Hospital Course: Patient presented with nausea, vomiting with fatigue. Upon further investigation patient had acute on chronic renal failure stage 4 likely from dehydration. This was likely exacerbated by her medications. The patient was admitted for hydration. Losartan and Aldactone was held. During the course of her stay her condition improved. Renal function also improved. Nephrology was consulted who follows the patient. At discharge patient without significant nausea vomiting. Fatigue improved. At discharge will recommend to hold losartan and Aldactone at this time. Recommend to monitor blood pressure daily. Recommend follow up with nephrology within 1 week with repeat lab-BMP. If blood pressure continues to be elevated nephrology will consider adding back losartan at a low dose and adjust appropriately. For now continue with a 1500 cc fluid restriction. Monitor weight daily. Further instruction on diuretic therapy will come from nephrology. Patient will continue with home health at discharge. Patient with hypertension. Blood pressure stable at this time with Norvasc 10 mg daily and carvedilol 1 g 1 pill twice daily. As mentioned above Aldactone and losartan has been discontinued. Recommend to maintain blood pressure less than 140/80. Recommend follow up with nephrology as directed. Patient with diabetes mellitus type 2 insulin dependent. This appears stable. At discharge she will continue with her current medication-Lantus. Recommend to maintain blood sugars less than 140 fasting and less than 200 meals. Further adjustment can be done by her PCP. Patient with dementia. At discharge she may continue with her current medication-Aricept 10 mg daily. Recommend follow up with neurology to further adjust medication if needed. Patient with history of CVA on chronic anti coagulation therapy. At discharge she will continue with her other medications including Eliquis 2.5 mg 1 pill twice daily. Vital Signs/Physical Exam: Temp Pulse Resp BP Pulse Ox 96.9 F 62 16 123/60 95 08/01/20 12:00 08/01/20 12:00 08/01/20 12:08/01/20 12:08/01/20 12:00 General: Alert, In no apparent distress, Oriented x1 HEENT: Atraumatic Neck: Supple Respiratory: Clear to auscultation bilaterally, Normal air movement Cardiovascular: Normal pulses, Regular rate/rhythm Gastrointestinal: Normal bowel sounds, No tenderness, No masses, No rebound, No guarding Integumentary: No tenderness/swelling, No erythema, No warmth, No cyanosis Neurological: Normal speech, Normal strength at 5/5 x4 extr, Normal tone, Normal affect Laboratory Data at Discharge: WBC 6.9 K/uL (4.3-10.9) D 08/01/20 03:38 Hgb 10.8 g/dL (12.0-15.0) L 08/01/20 03:38 Hct 32.7 % (36.0-45.0) L 08/01/20 03:38 Plt Count 143 K/uL (152-406) L 08/01/20 03:38 Sodium 141 mmol/L (136-145) 08/01/20 03:38 Potassium 4.6 mmol/L (3.5-5.1) 08/01/20 03:38 BUN 51 mg/dL (7-18) H 08/01/20 03:38 Creatinine 2.63 mg/dL (0.55-1.3) H 08/01/20 03:38 Glucose 101 mg/dL (74-106) 08/01/20 03:38 Uric Acid 8.9 mg/dL (2.6-6.0) H 08/01/20 03:38 Phosphorus 3.4 mg/dL (2.5-4.9) 08/01/20 03:38 Magnesium 2.6 mg/dL (1.8-2.4) H D 08/01/20 03:38 Total Bilirubin 0.5 mg/dL (0.2-1.0) 07/31/20 13:26 AST 13 U/L (15-37) L 07/31/20 13:26 ALT 14 U/L (12-78) 07/31/20 13:26 Alkaline Phosphatase 89 U/L (45-117) 07/31/20 13:26 Lipase 398 U/L (73-393) H 07/31/20 13:26 Home Medications: Amlodipine Besylate 10 mg PO DAILY 05/30/20 Atorvastatin Calcium 40 mg PO DAILY 05/30/20 Carvedilol [Coreg] 12.5 mg PO BID 05/30/20 Insulin Glargine,Hum.rec.anlog [Toujeo Solostar] 8 units SQ BEDTIME 05/30/20 Insulin Glargine,Hum.rec.anlog [Toujeo Solostar] 40 units SQ DAILY 05/30/20 Apixaban [Eliquis *] 1 tab PO BID 08/01/20 Donepezil HCl 1 tab PO DAILY 08/01/20 Patient Discharge Instructions: 1. Recommend follow up with PCP in 1 week to follow up this hospitalization. 2. Patient presented with nausea, vomiting with fatigue. Upon further investigation patient had acute on chronic renal failure stage 4 likely from dehydration. This was likely exacerbated by her medications. The patient was admitted for hydration. Losartan and Aldactone was held. During the course of her stay her condition improved. Renal function also improved. Nephrology was consulted who follows the patient. At discharge patient without significant nausea vomiting. Fatigue improved. At discharge will recommend to hold losartan and Aldactone at this time. Recommend to monitor blood pressure daily. Recommend follow up with nephrology within 1 week with repeat lab-BMP. If blood pressure continues to be elevated nephrology will consider adding back losartan at a low dose and adjust appropriately. For now continue with a 1500 cc fluid restriction. Monitor weight daily. Further instruction on diuretic therapy will come from nephrology. Patient will continue with home health at discharge. 3. Patient with hypertension. Blood pressure stable at this time with Norvasc 10 mg daily and carvedilol 1 g 1 pill twice daily. As mentioned above Aldactone and losartan has been discontinued. Recommend to maintain blood pressure less than 140/80. Recommend follow up with nephrology as directed. 4. Patient with diabetes mellitus type 2 insulin dependent. This appears stable. At discharge she will continue with her curren t medication-Lantus. Recommend to maintain blood sugars less than 140 fasting and less than 200 meals. Further adjustment can be done by her PCP. 5. Patient with dementia. At discharge she may continue with her current medication-Aricept 10 mg daily. Recommend follow up with neurology to further adjust medication if needed. 6. Patient with history of CVA on chronic anti coagulation therapy. At discharge she will continue with her other medications including Eliquis 2.5 mg 1 pill twice daily. Diet: Renal Activity: Fall precautions Followup: Shreyas Alvarado MD [Primary Care Provider] - Time spent managing pt's care (in minutes): 55
[2020-08-01] MEDS: NA CHLORIDE 0.9% 1,000 ML IV SCH (14:41)
[2020-08-01 16:56] VITALS: BP 122/60
[2020-08-02] MEDS ORDERED: DONEPEZIL HCL 5 MG TAB PO SCH (09:00)
== END 2020-08-01 17:49 | disposition home or self-care (01) ==
LOC: ER 12:51 → ERHOLD 16:34 → 2ND 18:05
PROVIDERS: ADMIT Family Medicine; ATTEND Family Medicine
DX: N17.9 Acute kidney failure, unspecified (principal); E86.0 Dehydration; R11.2 Nausea with vomiting, unspecified; I12.9 Hypertensive chronic kidney disease with stage 1 through stage 4 chronic kidney disease, or unspecified chronic kidney disease; N18.4 Chronic kidney disease, stage 4 (severe); Z20.828 Contact with and (suspected) exposure to other viral communicable diseases; E11.22 Type 2 diabetes mellitus with diabetic chronic kidney disease; Z79.4 Long term (current) use of insulin; F03.90 Unspecified dementia, unspecified severity, without behavioral disturbance, psychotic disturbance, mood disturbance, and anxiety; Z79.01 Long term (current) use of anticoagulants; E78.5 Hyperlipidemia, unspecified; E87.2 Acidosis; D63.1 Anemia in chronic kidney disease; R94.31 Abnormal electrocardiogram [ECG] [EKG]
CPT/HCPCS: 93005; 87088; 85025 ×2; 87086; 80048 ×2; 36415; 83735; 84100; 82947 ×4; 80076; 84550; 84443; 84439; 83690; 71250; 74176; 71045; 97116; 97161; 96374; 99285; U0003; J7040; J7030; J2405; G0378 ×3; 81003; 81015

== ENCOUNTER 2021-10-04 09:47 | Emergency (ER) | payer OTHER ==
--- OUTSIDE RECORDS SUMMARY | 2021-10-04 09:49 | XMS REPORT | Continuity of Care Document ---
:1940 Author Organization [facility] t Address [address] [place] [address] Care Team Providers Name Role Phone Clinton Pitts Attending Clinician Unavailable Problems This patient has no known problems. Allergies, Adverse Reactions, Alerts Allergy Allergy Status Severity Reaction(s) Onset Inactive Treating Comm ents Source Name Type Date Date Clinician Ibuprofe Adverse Active Info Not [facility] Medications Ordered Filled Start Stop Current Ordering Indication Dosage Frequency Signature Comments Components Source Medication Medication Date Date Medication? Clinician (SIG) Name Name BD Pen BD Pen 0 Yes Andreas [address] [facility] Needle Vane Needle Vane 4-20 Pitts needle [facility] Aspirin Aspirin 0 Yes Andreas [address] 8[facility]15 [facility] Plavix Plavix Yes Andreas 1 tablet [facility] Amlodipine Amlodipine Yes Andreas [address] [facility] Besylate Besylate Pitts [facility] OneTouch OneTouch Yes Andreas USE [facility] Ultra Test Ultra Test Pitts DIRECTED [facility] THREE [facility] TIMES l DAILY Out[facility] Clinics Tradjenta Tradjenta Yes Andreas Take [address] Pitts tablet by [facility] mouth [facility] daily. l [facility] Lipitor Lipitor Yes Andreas [address] [facility] OneTouch OneTouch Yes Andreas USE TWICE [facility] Delica Delica Pitts DAILY [facility] Lancets Lancets [facility] Fine Fine l Outpati ent Clinics [facility] Yes Andreas inject [address] [facility] SoloStar SoloStar Pitts units qam L [facility]ics OneTouch OneTouch Yes Andreas TEST THREE [facility] Ultra Test Ultra Test Pitts TIMES L u[facility] - DAILY [facility] l Out[facility] ent Clinics [facility] Yes Andreas 1 EACH [facility] [...] [facility] Yes Andreas INJECT [address] [facility] SoloStar [...] Procedures This patient has no known procedures. Encounters Start End Encounter Admission Attending Care Care Encounter Source Date/Time Date/Time Type Type Clinicians Facility Department ID 2021-09-26 Outpatient Pitts, [facility] 2021-09-19 Outpatient Pitts, [facility] [id number] [facility] 12[facility]25:55 [facility] 2021[facility]09[facility] [id number] [facility] Andreas [id number] [facility] 2021-09-19 Outpatient [facility] [id number] [facility] 12:03:17 Andreas [id number] [facility] 2021-09-19 [facility] Andreas [id number] [facility] 2021-09-19 [facility] Andreas [id number] [facility] 2021-09-19 [facility] Andreas [id number] [facility] 2021-09-19 [facility] Andreas [id number] [facility] 2021-09-26 2021-09-26 ambulatory [facility] [id number] [facility] 2021-09-20 2021-09-20 ambulatory [facility] [id number] [facility] 2021-06-21 2021-06-21 Outpatient [facility] [id number] [facility] 2021-02-22 2021-02-22 Outpatient [facility] [id number] [facility] 2020-12-15 2020-12-15 Outpatient [facility] [id number] [facility] 2020-09-20 2020-09-20 Outpatient [facility] [id number] [facility] 2020-09-20 2020-09-20 Outpatient [facility] [id number] [facility] 2020-08-282020-08-28 Outpatient [facility] [id number] [facility] 2020-08-09 2020-08-09 Outpatient [facility] [id number] [facility] 2020-08-09 2020-08-09 Outpatient [facility] [id number] [facility] 2020-08-03 2020-08-03 Outpatient [facility] [id number] [facility] 2020-07-31 2020-07-31 Outpatient [facility] [id number] [facility] 2020-06-09 2020-06-09 Outpatient [facility] [id number] [facility] 2020-06-08 2020-06-08 Outpatient [facility] [id number] [facility] 2020-05-03 2020-05-03 [facility] [id number] [facility] 10[facility]30:00 10:30:00 t Tate [employer] s - [address] [facility] Out[facility] Clinics 2020-01-25 2020-01-25 [facility] [id number] [facility] 10:00:00 10:00:00 t Tate [employer] s - [address] [facility] Clin[facility] 2020-01-18 2020-01-18 [facility] [id number] 14:16:00 14:16:00 t Tate [employer] s - Drive [facility] Out[facility] Clin[facility] 2019-12-13 2019-12-13 [facility] [id number] [address] 16:06:00 16:06:00 t Tate [employer] s - [address] [facility] Out[facility] Clinics 2019-12-06 2019-12-06 [facility] [id number] 08:26:00 08:26:[address] Luke s - [address] [facility] Medicine l Medicine Outpati ent Clinics 2019-11-26 2019-11-26 [facility] [id number] 09:36:00 09:36:00 t Tate Tate [employer] Luke s - Drive [facility] Medicine l Medicine Outpati ent Clinics 2019-09-16 2019-09-16 [facility] [id number] 15:15:00 15:15:00 t Tate [employer] Luke s - Drive [facility] Medicine l Medicine Outpati ent Clinics 2019-06-16 2019-06-16 [facility] [id number] 13:00:00 13:00:00 t Tate Tate [employer] s - Drive [facility] Medicine l Medicine Outpati ent Clinics 2019-05-05 2019-05-05 [facility] [id number] 10:17:00 10:17:00 t Tate [employer] Luke s - Drive [facility] Medicine l Medicine Outpati ent Clinics 2019-04-15 2019-04-15 [facility] [id number] 12:08:00 12:08:00 t Tate Tate [employer] s - Drive [facility] Medicine l Medicine Outpati ent Clinics 2019-04-14 2019-04-14 [facility] [id number] 10:38:00 10:38:00 t Tate [employer] Luke s - Drive [facility] Medicine l Medicine Outpati ent Clinics 2019-04-09 2019-04-09 [facility] [id number] 14:42:00 14:42:00 t Tate [employer] Luke s - Drive [facility] Medicine l Medicine Outpati ent Clinics 2019-03-17 2019-03-17 [facility] [id number] 14:00:00 14:00:00 t Tate [employer] s - Drive [facility] Medicine l Medicine Outpati ent Clinics 2019-02-11 2019-02-11 [facility] [id number] 14:37:00 14:37:00 t Tate [employer] s - Drive [facility] Medicine Outpati ent Clinics 2018-12-16 2018-12-16 [facility] [id number] [facility] 13:30:00 13:30:00 t [employer] - [employer] [facility] Medicine Outpati ent Clinics 2018-09-17 2018-09-17 [facility] [id number] [facility] 13:30:00 13:30:00 t [employer] - [employer] [facility] Medicine Outpati ent Clinics 2018-04-08 2018-04-08 [facility] [id number] [facility] 14:45:00 14:45:00 t [employer] [facility] Medicine Outpati ent Clinics 2018-03-17 2018-03-17 [facility] [id number] [facility] 13:00:00 13:00:00 t [employer] [facility] Medicine Outpati ent Clinics 2017-11-24 2017-11-24 [facility] [id number] [facility] 13:00:00 13:00:00 t [employer] [facility] Medicine Outpat[facility] ent Clinics Results This patient has no known results.
--- NOTE | 2021-10-04 10:29 | RAD REPORT ---
EXAM DESCRIPTION: CT - Head Brain Wo Cont - 10/04/2021 10:16 am CLINICAL HISTORY: WEAKNESS Headache, drowsiness COMPARISON: Ct Stroke Brain Wo Cont dated 05/30/2020; MRA Head Wo Cont dated 05/30/2020; Brain Wo Cont dated 05/30/2020 TECHNIQUE: All CT scans are performed using dose optimization technique as appropriate and may inclu de automated exposure control or mA/KV adjustment according to patient size. FINDINGS: No intracranial hemorrhage, hydrocephalus or extra-axial fluid collection.Mild generalized brain atrophy is present with mild periventricular and deep white matter chronic microvascular ische kenneth changes.Gliosis is present in the left temporal lobe compatible with old infarction. The paranasal sinuses and mastoids are clear. The calvarium is intact. Right vertebral atherosclerosi s. IMPRESSION: No acute intracranial abnormality. Old left MCA territory infarction gliosis present.
[2021-10-04 10:38] LABS: Urine Blood Trace-intact (Negative); Urine Glucose Negative (Negative); Urine Protein 1+ (Negative); Urine Specific Gravity 1.015 (1.005-1.030)
[2021-10-04 10:51] LABS: Absolute Lymphocytes (CBC) 2.6 K/uL (0.7-4.9); Hematocrit 38.6 % (36.0-45.0); Lymphocytes % 27.7 % (15.3-44.8); RBC Red Blood Cell Count 4.27 M/uL (3.86-4.86)
[2021-10-04 10:56] LABS: Protime INR 1.3
[2021-10-04 11:09] LABS: Albumin 3.6 g/dL (3.4-5.0); Bilirubin Direct 0.1 mg/dL (0-0.2); Bilirubin Total 0.4 mg/dL (0.2-1.0); Potassium 3.4 mmol/L (3.5-5.1); Protein, Total 8.3 g/dL (6.4-8.2)
[2021-10-04 11:17] LABS: Troponin High Sensitivity 155.9 pg/mL (<58.9)
[2021-10-04 16:06] LABS: Urine RBC <5 /HPF (NONE SEEN)
[2021-10-04 16:07] LABS: Urine Bacteria <20 /HPF (<20); Urine Mucus 1+ /HPF (NONE SEEN)
--- NOTE | 2021-10-04 16:35 | EDPHYS ---
Physician Documentation [facility] Name: Marielle Rouse Age: 80 yrs Sex: Female : 1940 Arrival Date: 10/04/2021 Time: 09:48 Bed 20 Private MD: ED Physician Teresa Pitts HPI: 10/04 10:06 This 80 yrs old Female presents to ER via Wheelchair with complaints of sp3 Weakness. 10:06 80-year-old female with history of diabetes, hypertension, CVA, dementia presents to [facility] the ED for near syncope reported by her son who was taking her to a routine visit at her "eye doctor". Son states that they were driving and she kind of slumped over but never fully passed out. He went straight to the emergency department here after which she was "back to normal again". Patient currently feels fine with no symptoms whatsoever. Patient denies headache, neck pain, URI symptoms, fever, chest pain, shortness of breath, corby pain, nausea, vomiting, diarrhea, headache, full syncope, focal neuro deficit, change in speech, change in baseline memory, rash, or any other symptoms as a part of ROS at this time.. Historical: - Allergies: 09:52 No Known Allergies; ap3 - Home Meds: 09:52 carvedilol 12.5 mg oral tab 1 tab daily [Active]; Eliquis 2.5 mg oral tab 1 tab daily ap3 [Active]; atorvastatin 40 mg oral tab 1 tab once daily [Active]; donepezil 10 mg oral tab .5 tab once daily [Active]; amlodipine 10 mg oral tab 1 tab once daily [Active]; Iron CR Oral [Active]; - PMHx: 09:52 CVA; Dementia; Diabetes - IDDM; Hypertension; ap3 09:55 hx of stroke may 2020; ap3 - Immunization history:: Client reports receiving the 2nd dose of the Covid vaccine, and booster Pneumococcal vaccine is up to date, Flu vaccine is up to date. - Social history:: Smoking status: Patient denies any tobacco usage or history of. ROS: 10:07 Constitutional: Negative for fever, chills, and weight loss, Eyes: Negative for injury, sp3 pain, redness, and discharge, ENT: Negative for injury, pain, and discharge, Neck: Negative for injury, pain, and swelling, Cardiovascular: Negative for chest pain, palpitations, and edema, Respiratory: Negative for shortness of breath, cough, wheezing, and pleuritic chest pain, Abdomen/GI: Negative for abdominal pain, nausea, vomiting, diarrhea, and constipation, Back: Negative for injury and pain, MS/Extremity: Negative for injury and deformity, Skin: Negative for injury, rash, and discoloration, Allergy/Immunology: Negative for hives, rash, and allergies, Endocrine: Negative for neck swelling, polydipsia, polyuria, polyphagia, and marked weight changes. 10:07 All other systems are negative. Exam: 10:07 Constitutional: This is a well developed, well nourished patient who is awake, alert, sp3 and in no acute distress. Head/Face: Normocephalic, atraumatic. Eyes: Pupils equal round and reactive to light, extra-ocular motions intact. Lids and lashes normal. Conjunctiva and sclera are non-icteric and not injected. Cornea within normal limits. Periorbital areas with no swelling, redness, or edema. ENT: Nares patent. No nasal discharge, no septal abnormalities noted. External auditory canals are clear. Oropharynx with no redness, swelling, or masses, exudates, or evidence of obstruction, uvula midline. Mucous membranes moist. Neck: Trachea midline, no thyromegaly or masses palpated, and no cervical lymphadenopathy. Supple, full range of motion without nuchal rigidity, or vertebral point tenderness. No Meningismus. Chest/axilla: Normal chest wall appearance and motion. Nontender with no deformity. No lesions are appreciated. Cardiovascular: Regular rate and rhythm with a normal S1 and S2. No gallops, murmurs, or rubs. Normal PMI, no JVD. No pulse deficits. Respiratory: Lungs have equal breath sounds bilaterally, clear to auscultation and percussion. No rales, rhonchi or wheezes noted. No increased work of breathing, no retractions or nasal flaring. Abdomen/GI: Soft, non-tender, with normal bowel sounds. No distension or tympany. No guarding or rebound. No evidence of tenderness throughout. Back: No spinal tenderness. No costovertebral tenderness. Full range of motion. Skin: Warm, dry with normal turgor. Normal color with no rashes, no lesions, and no evidence of cellulitis. MS/ Extremity: Pulses equal, no cyanosis. Neurovascular intact. Full, normal range of motion. Neuro: Awake and alert, GCS 15, oriented to person, place, time, and situation. Cranial nerves II-XII grossly intact. Motor strength 5/5 in all extremities. Sensory grossly intact. Cerebellar exam normal. Normal gait. Psych: Awake, alert, with orientation to person, place and time. Behavior, mood, and affect are within normal limits. 11:13 ECG was reviewed by the Attending Physician. EKG demonstrates normal sinus rhythm at 72 sp3 bpm with borderline FL interval of 200, normal QRS with poor QRS progression in leads V1 through V3, normal axis, nonspecific ST/T changes diffusely particularly in the precordial leads without evidence of any acute ischemia. Vital Signs: 09:50 BP 136 / 64; Pulse 61; Resp 18; Temp 97.2; Pulse Ox 99% on R/A; Weight 53.07 kg; Height ap3 5 ft. 6 in. (167.64 cm); 10:54 BP 125 / 74; Pulse 70; Resp 16; Pulse Ox 100% on R/A; ab2 11:41 BP 129 / 69; Pulse 68; Resp 16; Pulse Ox 100% on R/A; Pain 0/10; ab2 13:21 BP 136 / 64; Pulse 71; Resp 16; Pulse Ox 98% on R/A; ab2 14:01 BP 142 / 66; Pulse 83; Resp 16; Pulse Ox 100% on R/A; Pain 0/10; ab2 15:02 BP 143 / 61; Pulse 63; Resp 16; Pulse Ox 100% on R/A; Pain 0/10; ab2 15:45 BP 144 / 66; Pulse 68; Resp 16; Pulse Ox 98% on R/A; ab2 16:45 BP 147 / 79; Pulse 68; Resp 16; Temp 98.0; Pulse Ox 98% on R/A; Pain 0/10; ab2 09:50 Body Mass Index 18.88 (53.07 kg, 167.64 cm) ap3 NIH Stroke Scale Scores: 10:09 NIHSS Score: 0 ab2 MDM: 09:57 Patient medically screened. sp3 10:07 Data reviewed: vital signs, nurses notes. ED course: 80-year-old female with near sp3 syncope now fully resolved. Vital signs are normal. Differential includes mild dehydration, patient being tired, ACS, infection, sepsis, TIA, among others. At this time I am not highly suspicious for critical illness including shock, severe infection/sepsis, STEMI, or any other critical findings at this time. Will work patient up with CT scan of the head, laboratory values including troponin, EKG, observation, and patient will likely be discharged if work-up is negative. Patient and son are okay with this plan and we will take further intervention if data indicates such.. 16:32 ED course: Patient's troponin is trending down on all 3 values and I do not believe she sp3 is having an acute cardiac event. Urine micro demonstrates UTI and we will treat her for that with p.o. Bactrim and 1 dose of Rocephin here in the emergency department.. 17:11 ED course: Prior to discharge demonstrates normal sinus rhythm at 68 bpm with FL sp3 interval 226 poor R wave progression, nonspecific changes in ST-T segments consistent with prior EKG. Patient ambulatory with no discomfort, shortness of breath, chest pain, back pain, syncope, near syncope or any distress at all. Patient is smiling, laughing, and caring on normal conversation. Discussed with patient's son and [id number] who will be taking them to their senior android software engineer at [facility] and noted return here for any further complication, concerns, symptoms, or emergency.. 10/04 10:00 Order name: CBC with Diff 3 10/04 10:00 Order name: CPK 3 10/04 10:00 Order name: Hepatic Function sp3 10/04 10:00 Order name: Lipase 3 10/04 10:00 Order name: Magnesium 3 10/04 10:00 Order name: Protime (+inr); Complete Time: 11:12 sp3 10/04 10:00 Order name: Ptt, Activated; Complete Time: 11:12 sp3 10/04 10:00 Order name: Troponin HS 3 10/04 10:00 Order name: CMP sp3 10/04 10:00 Order name: UA MICROSCOPIC; Complete Time: 16:32 sp3 10/04 10:00 Order name: Lactate; Complete Time: 11:12 sp3 10/04 10:01 Order name: CBC with Automated Diff; Complete Time: 11:12 EDMS 10/04 10:01 Order name: Creatine Phosphokinase EDMS 10/04 10:00 Order name: CT Head Brain wo Cont; Complete Time: 11:12 sp3 10/04 10:00 Order name: EKG; Complete Time: 10:01 sp3 10/04 10:00 Order name: Cardiac monitoring; Complete Time: 10:25 sp3 10/04 10:00 Order name: EKG - Nurse/Tech; Complete Time: 10:54 sp3 10/04 10:00 Order name: IV Saline Lock; Complete Time: 10:54 sp3 10/04 10:00 Order name: Labs collected and sent; Complete Time: 10:54 sp3 10/04 10:00 Order name: NPO; Complete Time: 10:54 sp3 10/04 10:01 Order name: Liver (Hepatic) Function EDMS 10/04 10:01 Order name: Lipase EDMS 10/04 10:01 Order name: Magnesium EDMS 10/04 10:38 Order name: Urine Dipstick-Ancillary; Complete Time: 11:12 EDMS 10/04 11:53 Order name: Troponin HS: Draw 4 hours after first troponin; Complete Time: 13:16 sp3 10/04 14:17 Order name: Troponin HS ss 10/04 14:18 Order name: Troponin High Sensitivity; Complete Time: 16:32 EDMS 10/04 16:08 Order name: Urine Culture EDMS 10/04 10:00 Order name: O2 Per Protocol; Complete Time: 10:54 sp3 10/04 10:00 Order name: O2 Sat Monitoring; Complete Time: 10:54 sp3 10/04 10:00 Order name: Urine Dipstick-Ancillary (obtain specimen); Complete Time: 10:54 sp3 Administered Medications: 16:59 Drug: Rocephin (cefTRIAXone) 1 grams Route: IV; Rate: calculated rate; Site: right ab2 antecubital; Point of Care Testing: Blood Glucose: 09:56 Blood Glucose: 200 mg/dL; ap3 Ranges: Critical Glucose Levels:Adult <50 mg/dl or >400 mg/dl <40 mg/dl or >180 mg/dl Disposition Summary: 10/04/21 16:34 Discharge Ordered Location: Home sp3 Condition: Stable sp3 Diagnosis - UTI/ Urinary tract infection, site not specified sp3 Followup: sp3 - With: Private Physician - When: Upon discharge from the Emergency Department - Reason: Re-evaluation by your physician Discharge Instructions: - Discharge Summary Sheet sp3 - Urinary Tract Infection, Adult sp3 Forms: - Medication Reconciliation Form sp3 - Thank You Letter sp3 - Family Work Release [email or web address] - Antibiotic Education sp3 - Prescription Opioid Use sp3 Prescriptions: - Bactrim DS 800-160 mg Oral Tablet - take 1 tablet by ORAL route every 12 hours for 5 days; 10 tablet; Refills: 0, sp3 Product Selection Permitted NIH Stroke Scale - NIH Stroke Score Date: 10/04/2021 Time: 10:09 Total Score = 0 1a. Level of Consciousness (LOC) - 0(Alert) 1b. Level of Consciousness (LOC) (Month \\T\\ Age) - 0(Both) 1c. LOC Commands (Open \\T\\ Closes Eyes/Landcare Officer) - 0(Both) 2. Best Gaze (Lateral Gaze Paresis) - 0(Normal) 3. Visual Field Loss - 0(No visual loss) 4. Facial Palsy - 0(Normal) 5a. Left Arm: Motor (10-second hold) - 0(No drift) 5b. Right Arm: Motor (10-second hold) - 0(No drift) 6a. Left Leg: Motor (5-second hold - always test supine) - 0(No drift) 6b. Right Leg: Motor (5-second hold - always test supine) - 0(No drift) 7. Limb Ataxia (finger/nose \\T\\ heel/lazo - test with eyes open) - 0(Absent) 8. Sensory Loss (pinprick arms/legs/face) - 0(Normal) 9. Best Language: Aphasia (description/naming/reading) - 0(No aphasia) 10. Dysarthria (speech clarity - read or repeat words) - 0(Normal) 11. Extinction and Inattention (visual/tactile/auditory/spatial/personal) - 0(No abnormality) Initials: ab2 Signatures: Dispatcher [employer] Belia Persaud RN RN ap3 Teresa Pitts MD MD sp3 Leroy Mancuso ab2 Corrections: (The following items were deleted from the chart) 14:40 10:01 UA MICROSCOPIC+U.LAB.BRZ ordered. EDMS EDMS 16:06 10:01 URINALYSIS+U.LAB.BRZ ordered. EDMS EDMS
--- NOTE | 2021-10-04 16:35 | ER ---
Nurse's Notes [facility] Name: Marielle Rouse Age: 80 yrs Sex: Female : 1940 Arrival Date: 10/04/2021 Time: 09:48 Bed 20 Private MD: Diagnosis: UTI/ Urinary tract infection, site not specified Presentation: 10/04 09:50 Chief complaint: Patient states: she woke up feeling okay, but when she was getting ap3 ready to go to the Dr. she started feeling "bad", and weak. It is reported by the patients grandson that the patient felt faint prior to arrival. Patient required assistance out of her vehicle. Coronavirus screen: At this time, the client does not indicate any symptoms associated with coronavirus-19. Ebola Screen: No symptoms or risks identified at this time. No acute neurological deficit is noted. The patients blood glucose was checked before arriving to the hospital and was found to be normal. Initial Sepsis Screen: Does the patient meet any 2 criteria? No. Patient's initial sepsis screen is negative. Does the patient have a suspected source of infection? No. Patient's initial sepsis screen is negative. Risk Assessment: Do you want to hurt yourself or someone else? Patient reports no desire to harm self or others. Onset of symptoms was October 04, 2021. 09:50 Method Of Arrival: Wheelchair ap3 09:50 Acuity: DERRICK 3 ap3 Historical: - Allergies: 09:52 No Known Allergies; ap3 - Home Meds: 09:52 carvedilol 12.5 mg oral tab 1 tab daily [Active]; Eliquis 2.5 mg oral tab 1 tab daily ap3 [Active]; atorvastatin 40 mg oral tab 1 tab once daily [Active]; donepezil 10 mg oral tab .5 tab once daily [Active]; amlodipine 10 mg oral tab 1 tab once daily [Active]; Iron CR Oral [Active]; - PMHx: 09:52 CVA; Dementia; Diabetes - IDDM; Hypertension; ap3 09:55 hx of stroke may 2020; ap3 - Immunization history:: Client reports receiving the 2nd dose of the Covid vaccine, and booster Pneumococcal vaccine is up to date, Flu vaccine is up to date. - Social history:: Smoking status: Patient denies any tobacco usage or history of. Screenin:13 Abuse screen: Denies threats or abuse. Denies injuries from another. Nutritional ab2 screening: No deficits noted. Tuberculosis screening: No symptoms or risk factors identified. Fall Risk None identified. Assessment: 09:57 VAN Scoring: Arm Drift: Patients demonstrates NO arm weakness. Patient is VAN Negative. ap3 10:09 The patient is alert, and able to follow commands. The patient does not exhibit slurred ab2 or garbled speech. General: Appears in no apparent distress. comfortable, Behavior is calm, cooperative, appropriate for age. Pain: Denies pain. Pain does not radiate. Neuro: No deficits noted. Level of Consciousness is awake, alert, obeys commands, Oriented to person, place, time, situation, Appropriate for age Diplomatic Officer are equal bilaterally Moves all extremities. Gait is steady, Reports weakness since 929. Cardiovascular: Denies chest pain, shortness of breath, Heart tones S1 S2 present Patient's skin is warm and dry. Respiratory: No deficits noted. Airway is patent Respiratory effort is even, unlabored, Respiratory pattern is regular, symmetrical, Breath sounds are clear bilaterally. Denies cough, shortness of breath. GI: No deficits noted. No signs and/or symptoms were reported involving the gastrointestinal system. Abdomen is flat, non-distended, Bowel sounds present X 4 quads. Abd is soft and non tender. : No deficits noted. No signs and/or symptoms were reported regarding the genitourinary system. EENT: No deficits noted. No signs and/or symptoms were reported regarding the EENT system. Derm: No deficits noted. No signs and/or symptoms reported regarding the dermatologic system. Skin is intact, Skin is dry. Musculoskeletal: Reports weakness in enitre body. 10:15 The patient is not exhibiting difficulty speaking. The patient does not exhibit ab2 difficulty understanding words. The patient is able to swallow own secretions with no drooling or need for suction. Patient tolerated one teaspoon of water. No drooling, immediate coughing, gurgling, or clearing of the throat was noted. The patient tolerated 90mL of water. No drooling, immediate coughing, gurgling, or clearing of the throat was noted. The patient passed the bedside swallow screening. Oral medications may be given as ordered. Contact Physician for further diet orders. Provider notified of bedside swallow screening results: Teresa Pitts MD. The patient has not been NPO before screening. 15:02 Reassessment: Patient appears in no apparent distress at this time. Pt given sandwich ab2 and water per request. Awaiting repeat trop results for disposition. Denies any needs at this time. Pt states she is ready to go. Vital Signs: 09:50 BP 136 / 64; Pulse 61; Resp 18; Temp 97.2; Pulse Ox 99% on R/A; Weight 53.07 kg; Height ap3 5 ft. 6 in. (167.64 cm); 10:54 BP 125 / 74; Pulse 70; Resp 16; Pulse Ox 100% on R/A; ab2 11:41 BP 129 / 69; Pulse 68; Resp 16; Pulse Ox 100% on R/A; Pain 0/10; ab2 13:21 BP 136 / 64; Pulse 71; Resp 16; Pulse Ox 98% on R/A; ab2 14:01 BP 142 / 66; Pulse 83; Resp 16; Pulse Ox 100% on R/A; Pain 0/10; ab2 15:02 BP 143 / 61; Pulse 63; Resp 16; Pulse Ox 100% on R/A; Pain 0/10; ab2 15:45 BP 144 / 66; Pulse 68; Resp 16; Pulse Ox 98% on R/A; ab2 16:45 BP 147 / 79; Pulse 68; Resp 16; Temp 98.0; Pulse Ox 98% on R/A; Pain 0/10; ab2 09:50 Body Mass Index 18.88 (53.07 kg, 167.64 cm) ap3 NIH Stroke Scale Scores: 10:09 NIHSS Score: 0 ab2 ED Course: 09:48 Patient arrived in ED. as 09:52 Triage completed. ap3 09:57 Teresa Pitts MD is Attending Physician. sp3 09:58 Leroy Mancuso is Primary Nurse. ab2 10:13 Arm band placed on right wrist. ab2 10:13 No provider procedures requiring assistance completed. ab2 10:14 Patient has correct armband on for positive identification. Bed in low position. Call ab2 light in reach. Side rails up X2. 10:15 CT Head Brain wo Cont In Process Unspecified. EDMS 10:53 Inserted saline lock: 20 gauge in right antecubital area, using aseptic technique. ab2 10:54 Liver (Hepatic) Function Sent. ab2 10:54 Lipase Sent. ab2 10:54 Magnesium Sent. ab2 10:54 Creatine Phosphokinase Sent. ab2 10:54 CBC with Automated Diff Sent. ab2 10:54 Lactate Sent. ab2 10:54 CMP Sent. ab2 10:54 Troponin HS Sent. ab2 10:54 CBC with Diff Sent. ab2 10:54 CPK Sent. ab2 10:54 Hepatic Function Sent. ab2 10:54 Lipase Sent. ab2 10:54 Magnesium Sent. ab2 10:54 Protime (+inr) Sent. ab2 10:54 Ptt, Activated Sent. ab2 14:57 Troponin HS Sent. ab2 14:57 Troponin High Sensitivity Sent. ab2 17:05 IV discontinued, intact, bleeding controlled, No redness/swelling at site. Pressure ab2 dressing applied. Administered Medications: 16:59 Drug: Rocephin (cefTRIAXone) 1 grams Route: IV; Rate: calculated rate; Site: right ab2 antecubital; Point of Care Testing: Blood Glucose: 09:56 Blood Glucose: 200 mg/dL; ap3 Ranges: Outcome: 16:34 Discharge ordered by MD. sp3 17:05 Discharged to home ambulatory, with family. ab2 17:05 Condition: good 17:05 Discharge instructions given to patient, family, Instructed on discharge instructions, follow up and referral plans. Demonstrated understanding of instructions, follow-up care, medications, Prescriptions given X 1. 17:13 Patient left the ED. ab2 NIH Stroke Scale - NIH Stroke Score Date: 10/04/2021 Time: 10:09 Total Score = 0 1a. Level of Consciousness (LOC) - 0(Alert) 1b. Level of Consciousness (LOC) (Month \\T\\ Age) - 0(Both) 1c. LOC Commands (Open \\T\\ Closes Eyes/Franchise Sales Representative) - 0(Both) 2. Best Gaze (Lateral Gaze Paresis) - 0(Normal) 3. Visual Field Loss - 0(No visual loss) 4. Facial Palsy - 0(Normal) 5a. Left Arm: Motor (10-second hold) - 0(No drift) 5b. Right Arm: Motor (10-second hold) - 0(No drift) 6a. Left Leg: Motor (5-second hold - always test supine) - 0(No drift) 6b. Right Leg: Motor (5-second hold - always test supine) - 0(No drift) 7. Limb Ataxia (finger/nose \\T\\ heel/lazo - test with eyes open) - 0(Absent) 8. Sensory Loss (pinprick arms/legs/face) - 0(Normal) 9. Best Language: Aphasia (description/naming/reading) - 0(No aphasia) 10. Dysarthria (speech clarity - read or repeat words) - 0(Normal) 11. Extinction and Inattention (visual/tactile/auditory/spatial/personal) - 0(No abnormality) Initials: ab2 Signatures: Dispatcher [employer] EDMS Yuliana Perez Amanda, RN RN ap3 Teresa Pitts MD MD sp3 Leroy Mancuso ab2 Corrections: (The following items were deleted from the chart) 14:40 10:54 UA MICROSCOPIC+U.LAB.BRZ drawn and sent. ab2 EDMS 16:06 10:54 URINALYSIS+U.LAB.BRZ drawn and sent. ab2 EDMS
[2021-10-04] MEDS ORDERED: CEFTRIAXONE 1000 MG/VIAL ONE (16:45)
[2021-10-04 17:26] VITALS: O2SAT 98
[2021-10-04 17:27] VITALS: BP 147/79; TEMP 98
== END 2021-10-04 17:13 | disposition home or self-care (01) ==
LOC: ER 09:47
DX: N39.0 Urinary tract infection, site not specified (principal); I10 Essential (primary) hypertension; E11.9 Type 2 diabetes mellitus without complications; F03.90 Unspecified dementia, unspecified severity, without behavioral disturbance, psychotic disturbance, mood disturbance, and anxiety; Z79.01 Long term (current) use of anticoagulants; Z86.73 Personal history of transient ischemic attack (TIA), and cerebral infarction without residual deficits
CPT/HCPCS: 36415; 70450; 80053; 80076; 81003; 81015; 82550; 83605; 83690; 83735; 84484; 85025; 85610; 85730; 87086; 87088; 93005; 96374; 99284